=== PATIENT | female | born 1970 ===

== ENCOUNTER 2016-05-23 14:10 | Emergency (ER) | payer SELFPAY ==
[2016-05-23 14:23] VITALS: BMI 35.4
[2016-05-23 14:38] VITALS: TEMP 98.6
[2016-05-23] MEDS ORDERED: DiphenhydrAMINE 50 mg/ml Inj IVP STA (14:42)
--- NOTE | 2016-05-23 14:46 | ED PDOC ---
Arrival/HPI - General Chief Complaint: Dizziness/Lightheaded Time Seen by Provider: 05/23/16 14:17 Historian: Patient - History of Present Illness Narrative History of Present Illness (Text): 05/23/16 14:42 Alaina Stout is a 46 year old female who presents to the emergency department for evaluation of headache and dizziness since yesterday. Reports that headache resolved yesterday after taking Advil. However states that she developed a headache over the frontal region.Reports her blood pressure was elevated at 169/114 today morning. Denies fever, chills, vomiting, diarrhea, chest pain, shortness of breath, urinary symptoms or any other complaints at this time. 05/23/16 17:38 Time/Duration: Other (yesterday ) Symptom Onset: Gradual Symptom Course: Unchanged Severity Level: Mild Activities at Onset: Light Context: Home Past Medical History - Provider Review Nursing Documentation Reviewed: Yes - Travel History Have you recently traveled outside [place] w/in the past 3 mons?: Yes - Infectious Disease Hx of Infectious Diseases: None - Tetanus Immunization Tetanus Immunization: Unknown - Pulmonary Hx Asthma: Yes - Psychiatric Hx Psychophysiologic Disorder: No Hx Anxiety: No Hx Bipolar Disorder: No Hx Depression: No Hx Emotional Abuse: No Hx Hallucinations: No Hx Panic Disorder: No Hx Post Traumatic Stress Disorder: No Hx Psychosis: No Hx Physical Abuse: No Hx Schizophrenia: No Hx Sexual Abuse: No Hx Substance Use: No - Past Surgical History Past Surgical History: No Previous - Anesthesia Hx Anesthesia: No Hx Anesthesia Reactions: No Hx Malignant Hyperthermia: No - Suicidal Assessment Feels Threatened In Home Enviroment: No Family/Social History - Physician Review Nursing Documentation Reviewed: Yes Family/Social History: Unknown Family HX Smoking Status: Never Smoked Hx Alcohol Use: No Hx Substance Use: No Hx Substance Use Treatment: No Allergies/Home Meds Allergies/Adverse Reactions: Allergies aspirin Allergy (Verified 05/23/16 14:23) ANAPHYLAXIS Home Medications: Home Meds Medication Instructions Recorded Confirmed Albuterol Sulfate [Ventolin Hfa] 0.09 mg IH DAILY 07/04/14 07/04/14 Review of Systems - Physician Review All systems were reviewed & negative as marked: Yes - Review of Systems Constitutional: Normal. absent: Fatigue, Fevers Eyes: Vision Changes Respiratory: absent: SOB, Cough Cardiovascular: absent: Chest Pain Gastrointestinal: Nausea. absent: Abdominal Pain, Vomiting Genitourinary Female: Normal Neurological: Headache, Dizziness. absent: Focal Weakness, Gait Changes Psychiatric: Normal Physical Exam Vital Signs Reviewed: Yes Vital Signs Temp Pulse Resp BP Pulse Ox 05/23/16 16:26 69 18 155/79 H 97 05/23/16 15:34 76 18 158/83 H 97 05/23/16 15:10 98.6 F 85 18 159/110 H 97 05/23/16 14:10 98.6 F 85 16 159/110 H 100 Temperature: Afebrile Blood Pressure: Hypertensive Pulse: Regular Respiratory Rate: Normal Appearance: Positive for: Well-Appearing, Non-Toxic, Comfortable Pain Distress: None Mental Status: Positive for: Alert and Oriented X 3 - Systems Exam Head: Present: Atraumatic, Normocephalic Pupils: Present: PERRL Conjunctiva: Present: Normal Respiratory/Chest: Present: Clear to Auscultation, Good Air Exchange. No: Respiratory Distress, Accessory Muscle Use Cardiovascular: Present: Regular Rate and Rhythm, Normal S1, S2. No: Murmurs Abdomen: Present: Normal Bowel Sounds. No: Tenderness, Distention, Peritoneal Signs, Rebound, Guarding Neurological: Present: GCS=15, CN II-XII Intact, Speech Normal, Motor Func Grossly Intact, Normal Sensory Function Skin: Present: Warm, Dry, Normal Color. No: Rashes Psychiatric: Present: Alert, Oriented x 3, Normal Insight, Normal Concentration Medical Decision Making ED Course and Treatment: 05/23/16 14:52 Impression: A 46 year old female who presents to the ed complaining of headache and dizziness since yesterday. Also notes of elevated blood pressure of 169/114 Plan: -- EKG -- Labs, cardiac enzymes -- Benadryl -- HCG -- Urinalysis -- Reassess and disposition Progress Notes: 05/23/16 14:54 05/23/16 16:14 pt reassesed.states all symptoms resolved. no e/o of hypertensive emergency. suspected htn 2/2 pain/seals. pt states feels well to go home. no temporal ttp, no thunderclap features. labs unremarkable. advise outpt f/u and return precautions 05/23/16 16:27 ekg nsr [address] t wvae changes , poor tracing, no previous - Lab Interpretations Lab Results: 05/23/16 15:15 05/23/16 15:15 Lab Results 05/23/16 15:15: WBC 5.6, RBC 4.96, Hgb 12.0, Hct 34.4 L, MCV 69.4 L, MCH 24.2 L , MCHC 34.9, RDW 17.8 H, Plt Count 160, Gran % 60.4, Lymph % (Auto) 31.6, Crisp % (Auto) 6.6 H, Eos % (Auto) 1.2 L, Baso % (Auto) 0.2, Gran # 3.40, Lymph # 1.8 , Crisp # 0.4, Eos # 0.1, Baso # 0.01, PT 11.0, INR 1.02, APTT 27.1, Sodium 141, Potassium 4.0, Chloride 105, Carbon Dioxide 25, Anion Gap 15, BUN 11, Creatinine 0.5, Est GFR ( Amer) > 60, Est GFR (Non-Af Amer) > 60, Random Glucose 134 H, Calcium 8.9, Magnesium 2.0, Total Bilirubin 0.6, AST 24, ALT 20, Alkaline Phosphatase 75, Lactate Dehydrogenase 460, Total Creatine Kinase 38, Troponin I < 0.01, Total Protein 8.2, Albumin 4.1, Globulin 4.1, Albumin/ Globulin Ratio 1.0 L, Urine Color Straw, Urine Appearance Clear, Urine pH 7.5, Ur Specific [place] 1.010, Urine Protein Negative, Urine Glucose (UA) Negative, Urine Ketones Negative, Urine Blood Negative, Urine Nitrate Negative, Urine Bilirubin Negative, Urine Urobilinogen 0.2, Ur Leukocyte Esterase Negative, Urine HCG, Qual Negative - Medication Orders Current Medication Orders: Discontinued Medications Diphenhydramine HCl (Benadryl) 25 mg IVP STAT STA Stop: 05/23/16 14:43 Last Admin: 05/23/16 15:26 Dose: 25 MG IVP Administration Document 05/23/16 15:26 EQ (Rec: 05/23/16 15:26 EQ [facility] [id number] Charges for Administration # of IVP Administrations 1 Metoclopramide HCl (Reglan) 10 mg IVP STAT STA Stop: 05/23/16 14:43 Last Admin: 05/23/16 15:26 Dose: 10 MG IVP Administration Document 05/23/16 15:26 EQ (Rec: 05/23/16 15:26 EQ [facility] [id number] Charges for Administration # of IVP Administrations 1 - Scribe Statement The provider has reviewed the documentation as recorded by the Rodolfo Bartholomew Provider Attestation: All medical record entries made by the Miguelangelibkathya were at my direction and personally dictated by me. I have reviewed the chart and agree that the record accurately reflects my personal performance of the history, physical exam, medical decision making, and the department course for this patient. I have also personally directed, reviewed, and agree with the discharge instructions and disposition. Disposition/Present on Arrival - Present on Arrival Any Indicators Present on Arrival: No History of DVT/PE: No History of Uncontrolled Diabetes: No Urinary Catheter: No History of Decub. Ulcer: No History Surgical Site Infection Following: None - Disposition Have Diagnosis and Disposition been Completed?: Yes Diagnosis: Headache, Hypertension Disposition: HOME/ ROUTINE Disposition Time: 16:16 Condition: STABLE Discharge Instructions (ExitCare): Hypertension (ED), Acute Headache (ED) Print Language: SINHALA Prescriptions: Acetaminophen/Butalbital/Caf [Fioricet] 1 tab PO Q8 PRN #15 tab PRN Reason: Headache [facility] - Follow up with primary
[2016-05-23 15:11] VITALS: RESP 18; O2SAT 97
[2016-05-23 15:36] LABS: BASO # 0.01 K/mm3 (0.0-2.0); BASO % 0.2 % (0.0-3.0); EOS # 0.1 (0.0-0.7); EOS % 1.2 % (1.5-5.0); GRAN % 60.4 % (50.0-68.0); HEMATOCRIT 34.4 % (36.0-48.0); LYMPH # 1.8 (1.2-3.4); LYMPH % 31.6 % (22.0-35.0); MEAN CELL VOLUME 69.4 fL (80.0-105.0); MEAN CORPUSCULAR HEMOGLOBIN 24.2 pg (25.0-35.0); MEAN CORPUSCULAR HGB CONC 34.9 g/dl (31.0-37.0); MONO # 0.4 (0.1-0.6); MONO % 6.6 % (1.0-6.0); RED CELL DISTRIBUTION WIDTH 17.8 % (11.5-14.5); WHITE BLOOD COUNT 5.6 10^3/ul (4.5-11.0)
[2016-05-23 15:37] LABS: PH,URINE 7.5 (4.7-8.0); URINE BILIRUBIN NEGATIVE (NEGATIVE); URINE BLOOD NEGATIVE (NEGATIVE); URINE GLUCOSE (UA) NEGATIVE (NEGATIVE); URINE KETONE NEGATIVE (NEGATIVE); URINE LEUKOCYTE ESTERASE NEGATIVE Leu/uL (NEGATIVE); URINE PROTEIN NEGATIVE mg/dL (<30 mg/dL); URINE UROBILINOGEN 0.2 E.U./dL (<1 E.U./dL)
[2016-05-23 15:38] LABS: URINE APPEARANCE CLEAR (CLEAR); URINE COLOR STRAW (YELLOW)
[2016-05-23 15:42] LABS: ALKALINE PHOSPHATASE 75 U/L (38-133); ALT/SGPT 20 U/L (7-56); AST/SGOT 24 U/L (15-39); BILIRUBIN,TOTAL 0.6 mg/dL (0.2-1.3); BLOOD UREA NITROGEN 11 mg/dL (7-21); CALCIUM 8.9 mg/dL (8.4-10.5); CARBON DIOXIDE 25 mmol/L (21-33); CHLORIDE 105 mmol/L (98-107); GFR AFRICAN-AMERICAN > 60; GLUCOSE,RANDOM 134 mg/dL (70-110); SODIUM 141 mmol/L (132-148); TOTAL PROTEIN 8.2 g/dL (5.8-8.3)
[2016-05-23 15:52] LABS: INR 1.02 (0.93-1.08); PARTIAL THROMBOPLASTIN TIME 27.1 Seconds (23.7-30.8)
[2016-05-23 16:19] LABS: TROPONIN I < 0.01 ng/mL
[2016-05-23 16:27] VITALS: BP 155/79; PULSE 69
[2016-05-23 16:52] LABS: ADD MANUAL DIFF? NO
[2016-05-23 16:54] LABS: PLATELET COUNT 160 10^3/uL (120.0-450.0)
--- NOTE | 2016-05-24 12:00 | CARD ---
APPROVED REPORT EKG Measurement Heart [id number] <Conclusion> Normal sinus rhythm Minimal voltage criteria for LVH, may be normal variant Nonspecific T wave abnormality Abnormal ECG
== END 2016-05-23 16:50 | disposition home or self-care (01) ==
LOC: ED 14:10
DX: I10 Essential (primary) hypertension (principal); R51 Headache
CPT/HCPCS: 80053; 81003; 82550; 83615; 83735; 84484; 84703; 85025; 85610; 85730; 93005; 96374; 96375; 99285; J1200; J2765

== ENCOUNTER 2016-05-25 21:02 | Observation (INO) | payer SELFPAY ==
[2016-05-25] MEDS ORDERED: Nitroglycerin 2% Ointment Foilpak UD TOP STA (22:07)
--- NOTE | 2016-05-25 22:07 | ED PDOC ---
Arrival/HPI - General Chief Complaint: High Blood Pressure Time Seen by Provider: 05/25/16 21:45 Historian: Patient - History of Present Illness Narrative History of Present Illness (Text): 05/25/16 22:05 Alaina Stout is a 46 year old female, whose past medical history includes asthma, who presents to the Emergency department complaining of chest pain and high blood pressure. Patient states she was seen in the Emergency department on 05/23/2016 for high blood pressure and discharged home. Patient reports she is still experiencing high blood pressure and notes she developed right-sided chest pain yesterday with associated dyspnea on exertion. Patient states she was seen by a nurse practitioner today and advised to come to the Emergency department for further evaluation. Patient notes a family history of CAD, hypertension, and diabetes. Patient denies any fever, chills, nausea, vomiting, diarrhea, urinary symptoms, back pain, neck pain, headache, dizziness , or any other complaints. PMD: Dr. Faizan Marino Time/Duration: Other (few days) Symptom Onset: Gradual Symptom Course: Unchanged Activities at Onset: Rest, Light Context: Home Past Medical History - Provider Review Nursing Documentation Reviewed: Yes - Infectious Disease Hx of Infectious Diseases: None - Tetanus Immunization Tetanus Immunization: Unknown - Cardiac Hx Cardiac Disorders: Yes Hx Hypertension: Yes - Pulmonary Hx Asthma: Yes - Neurological Hx Headaches: Yes - HEENT Hx HEENT Disorder: No - Renal Hx Renal Disorder: No - Endocrine/Metabolic Hx Endocrine Disorders: Yes - Hematological/Oncological Hx Blood Disorders: No - Integumentary Hx Dermatological Disorder: No - Musculoskeletal/Rheumatological Hx Musculoskeletal Disorders: No - Gastrointestinal Hx Gastrointestinal Disorders: No - Genitourinary/Gynecological Hx Genitourinary Disorders: No - Psychiatric Hx Psychophysiologic Disorder: No Hx Anxiety: No Hx Bipolar Disorder: No Hx Depression: No Hx Emotional Abuse: No Hx Hallucinations: No Hx Panic Disorder: No Hx Post Traumatic Stress Disorder: No Hx Psychosis: No Hx Physical Abuse: No Hx Schizophrenia: No Hx Sexual Abuse: No Hx Substance Use: No - Past Surgical History Past Surgical History: No Previous - Anesthesia Hx Anesthesia: No Hx Anesthesia Reactions: No Hx Malignant Hyperthermia: No - Suicidal Assessment Feels Threatened In Home Enviroment: No Family/Social History - Physician Review Nursing Documentation Reviewed: Yes Family/Social History: No Known Family HX Smoking Status: Never Smoked Hx Alcohol Use: No Hx Substance Use: No Hx Substance Use Treatment: No Allergies/Home Meds Allergies/Adverse Reactions: Allergies aspirin Allergy (Verified 05/25/16 21:32) ANAPHYLAXIS Home Medications: Home Meds Medication Instructions Recorded Confirmed No Known Home Med 05/25/16 05/25/16 Review of Systems - Physician Review All systems were reviewed & negative as marked: Yes - Review of Systems Constitutional: Normal. absent: Fevers Eyes: Normal ENT: Normal Cardiovascular: Chest Pain, EUCEDA Gastrointestinal: Normal. absent: Abdominal Pain, Diarrhea, Nausea, Vomiting Genitourinary Female: Normal. absent: Dysuria, Frequency, Hematuria, Urine Output Changes Musculoskeletal: Normal. absent: Back Pain, Neck Pain Skin: Normal. absent: Rash Neurological: Normal. absent: Headache, Dizziness Endocrine: Normal Hemo/Lymphatic: Normal Psychiatric: Normal Physical Exam Vital Signs Reviewed: Yes Vital Signs Temp Pulse Resp BP Pulse Ox 05/26/16 01:07 92 H 18 150/80 98 05/25/16 22:46 86 16 133/88 05/25/16 22:02 78 20 143/96 H 100 05/25/16 21:33 99.0 F 83 16 148/106 H 98 Temperature: Afebrile Blood Pressure: Hypertensive Pulse: Regular Respiratory Rate: Normal Appearance: Positive for: Well-Appearing, Non-Toxic, Comfortable Pain Distress: None Mental Status: Positive for: Alert and Oriented X 3 - Systems Exam Head: Present: Atraumatic, Normocephalic Pupils: Present: PERRL Extroacular Muscles: Present: EOMI Conjunctiva: Present: Normal Mouth: Present: Moist Mucous Membranes Neck: Present: Normal Range of Motion Respiratory/Chest: Present: Clear to Auscultation, Good Air Exchange. No: Respiratory Distress, Accessory Muscle Use Cardiovascular: Present: Regular Rate and Rhythm, Normal S1, S2. No: Murmurs Abdomen: Present: Normal Bowel Sounds. No: Tenderness, Distention, Peritoneal Signs Back: Present: Normal Inspection Upper Extremity: Present: Normal Inspection. No: Cyanosis, Edema Lower Extremity: Present: Normal Inspection. No: Edema Neurological: Present: GCS=15, CN II-XII Intact, Speech Normal Skin: Present: Warm, Dry, Normal Color. No: Rashes Psychiatric: Present: Alert, Oriented x 3, Normal Insight, Normal Concentration Medical Decision Making ED Course and Treatment: 05/25/16 22:05 Impression: 46 year old female complaining of right-sided chest pain and high blood pressure. Differential Diagnosis include but are not limited to: ACS vs. chest pain vs. high blood pressure Plan: -- EKG -- Chest X-ray -- Labs, cardiac enzymes -- Nitroglycerin -- Reassess and disposition Prior Visits: Notes and results from previous visits were reviewed. On 05/23/2016, pt was seen in the Emergency department for high blood pressure and headache. Pt was d/c home. Progress Notes: Reviewed EKG, NSR at 89 bpm. Left atrial enlargement. LVH. Non-specific ST/T wave changes. 05/26/16 01:37 Reviewed labs, no acute abnormalities. Reviewed radiology, Chest X-ray shows no active disease. 05/26/16 01:46 Case discussed with medical billing clerk, who is aware and agrees with plan. House physician notified. 05/26/16 01:[address] Georges, who is aware and agrees with plan. Accepts pt in to hospitalist service. Pt will go to Telemetry observation for chest pain. Pt is no acute distress. Discussed results and hospital observation plan with pt , who is aware and verbalizes understanding. - Lab Interpretations Lab Results: 05/25/16 22:46 05/25/16 22:38 Lab Results 05/25/16 22:46: WBC 6.8 D, RBC 4.87, Hgb 11.5 L, Hct 33.8 L, MCV 69.4 L, MCH 23.6 L, MCHC 34.0, RDW 17.6 H, Plt Count 369, MPV 10.0 05/25/16 22:38: PT 11.3, INR 1.05, APTT 26.6, Sodium 140, Potassium 4.0, Chloride 106, Carbon Dioxide 20 L, Anion Gap 18, BUN 9, Creatinine 0.4 L, Est GFR ( Amer) > 60, Est GFR (Non-Af Amer) > 60, Random Glucose 109, Calcium 8.7, Total Bilirubin 0.4, AST 21, ALT 31, Alkaline Phosphatase 83, Lactate Dehydrogenase 452, Total Creatine Kinase 49, Troponin I < 0.01, Total Protein 8.1, Albumin 4.0, Globulin 4.1, Albumin/Globulin Ratio 1.0 L I have reviewed the lab results: Yes - RAD Interpretation Radiology Orders: 05/25/16 22:06 CHEST PORTABLE [RAD] Stat Herbicide Service Sales Representative: ED Physician - EKG Interpretation Interpreted by ED Physician: Yes Type: 12 lead EKG - Medication Orders Current Medication Orders: Discontinued Medications Nitroglycerin (Nitro-Bid 2% Oint) 1 ea TOP ONCE STA Stop: 05/25/16 22:08 Last Admin: 05/25/16 22:50 Dose: 1 EA - Scribe Statement The provider has reviewed the documentation as recorded by the Rodolfo Davis Provider Attestation: All medical record entries made by the Rodolfo were at my direction and personally dictated by me. I have reviewed the chart and agree that the record accurately reflects my personal performance of the history, physical exam, medical decision making, and the department course for this patient. I have also personally directed, reviewed, and agree with the discharge instructions and disposition. Disposition/Present on Arrival - Present on Arrival Any Indicators Present on Arrival: No History of DVT/PE: No History of Uncontrolled Diabetes: No Urinary Catheter: No History of Decub. Ulcer: No History Surgical Site Infection Following: None - Disposition Have Diagnosis and Disposition been Completed?: Yes Diagnosis: Chest pain Disposition: HOSPITALIZED Disposition Time: 01:53 Patient Plan: Observation Patient Problems: Current Active Problems Problem Status Diagnosed Chest pain Acute Condition: STABLE Discharge Instructions (ExitCare): Chest Pain (ED) Referrals: Arash Marino MD [Primary Care Provider] - Follow up with primary
[2016-05-25 22:52] LABS: HEMATOCRIT 33.8 % (36.0-48.0); MEAN CELL VOLUME 69.4 fL (80.0-105.0); MEAN CORPUSCULAR HEMOGLOBIN 23.6 pg (25.0-35.0); RED CELL DISTRIBUTION WIDTH 17.6 % (11.5-14.5); WHITE BLOOD COUNT 6.8 10^3/ul (4.5-11.0)
[2016-05-25 23:00] LABS: ALKALINE PHOSPHATASE 83 U/L (38-133); ALT/SGPT 31 U/L (7-56); AST/SGOT 21 U/L (15-39); BILIRUBIN,TOTAL 0.4 mg/dL (0.2-1.3); BLOOD UREA NITROGEN 9 mg/dL (7-21); CALCIUM 8.7 mg/dL (8.4-10.5); CARBON DIOXIDE 20 mmol/L (21-33); CHLORIDE 106 mmol/L (98-107); GFR AFRICAN-AMERICAN > 60; GLUCOSE,RANDOM 109 mg/dL (70-110); SODIUM 140 mmol/L (132-148); TOTAL PROTEIN 8.1 g/dL (5.8-8.3)
[2016-05-25 23:05] LABS: INR 1.05 (0.93-1.08); PARTIAL THROMBOPLASTIN TIME 26.6 Seconds (23.7-30.8)
[2016-05-25 23:10] LABS: TROPONIN I < 0.01 ng/mL
--- NOTE | 2016-05-26 02:47 | CP.PCM.HP ---
<Odilon Thomas - Last Filed: 05/26/16 02:59> History of Present Illness - History of Present Illness History of Present Illness: cc: Chest pain HPI: Patient is a 46yo female with past medical history of asthma, nephrolithiasis and hx of gestational diabetes that presented c/o right-sided chest pain for the last couple days. Patient stated that she checked her blood pressure at home and it was ~160/~110. She describes her right-sided chest pain as pressure-like in nature, constant and radiating into her right axilla. She also reported headaches, shortness of breath on exertion, eye floaters and inability to tolerate greasy foods which cause her to have nausea and vomiting. She states that she had been taking advil for her headaches with moderate relief. Patient denied fever, chills, cough, abdominal pain, focal weakness, numbness, tingling, dysuria, frequency, urgency. 12 point ROS as per HPI above, otherwise negative PMHx: Asthma, nephrolithiasis, gestational diabetes PSHx: none Medications: Advil for headaches as needed Allergies: aspirin Family Hx: Mother: HTN, HLD, DM2 ; Father: DM2 Social Hx: Former smoker quit 9yrs ago (smoked 2-3 cig/day for ~4yrs); denies illicit drugs and alcohol use Present on Admission - Present on Admission Any Indicators Present on Admission: No Past Patient History - Infectious Disease Hx of Infectious Diseases: None - Tetanus Immunizations Tetanus Immunization: Unknown - Past Social History Smoking Status: Never Smoked - CARDIAC Hx Cardiac Disorders: Yes Hx Hypertension: Yes - PULMONARY Hx Asthma: Yes - HEENT Hx HEENT Problems: No - RENAL Hx Chronic Kidney Disease: No - ENDOCRINE/METABOLIC Hx Endocrine Disorders: Yes - HEMATOLOGICAL/ONCOLOGICAL Hx Blood Disorders: No - INTEGUMENTARY Hx Dermatological Problems: No - MUSCULOSKELETAL/RHEUMATOLOGICAL Hx Musculoskeletal Disorders: No - GASTROINTESTINAL Hx Gastrointestinal Disorders: No - GENITOURINARY/GYNECOLOGICAL Hx Genitourinary Disorders: No - PSYCHIATRIC Hx Psychophysiologic Disorder: No Hx Anxiety: No Hx Bipolar Disorder: No Hx Depression: No Hx Emotional Abuse: No Hx Hallucinations: No Hx Panic Symptoms: No Hx Post Traumatic Stress Disorder: No Hx Psychosis: No Hx Physical Abuse: No Hx Schizophrenia: No Hx Sexual Abuse: No Hx Substance Use: No - SURGICAL HISTORY Hx Surgeries: No - ANESTHESIA Hx Anesthesia: No Hx Anesthesia Reactions: No Hx Malignant Hyperthermia: No Meds Allergies/Adverse Reactions: Allergies Allergy/AdvReac Type Severity Reaction Status Date / Time aspirin Allergy ANAPHYLAXIS Verified 05/25/16 21:32 Physical Exam - Constitutional Appears: Well, Non-toxic, No Acute Distress - Head Exam Head Exam: ATRAUMATIC, NORMAL INSPECTION, NORMOCEPHALIC - Eye Exam Eye Exam: EOMI, PERRL - ENT Exam ENT Exam: Mucous Membranes Moist - Neck Exam Neck exam: Positive for: Normal Inspection. Negative for: Lymphadenopathy, Thyromegaly - Respiratory Exam Respiratory Exam: Clear to Auscultation Bilateral, NORMAL BREATHING PATTERN. absent: Accessory Muscle Use, Prolonged Expiratory Phase, Rales, Rhonchi, Wheezes - Cardiovascular Exam Cardiovascular Exam: RRR, +S1, +S2. absent: Tachycardia, Diastolic murmur, Gallop, JVD, Rubs, Systolic Murmur - GI/Abdominal Exam GI & Abdominal Exam: Normal Bowel Sounds, Soft. absent: Distended, Firm, Guarding, Rebound, Rigid, Tenderness - Extremities Exam Extremities exam: Positive for: normal inspection. Negative for: pedal edema, tenderness - Neurological Exam Neurological exam: Alert, CN II-XII Intact, Oriented x3 - Psychiatric Exam Psychiatric exam: Normal Affect, Normal Mood - Skin Skin Exam: Dry, Intact, Normal Color, Warm Results - Vital Signs Recent Vital Signs: Last Vital Signs Temp 99.0 F 05/25/16 21:33 Pulse 95 H 05/26/16 02:04 Resp 18 05/26/16 02:04 BP 130/83 05/26/16 02:04 Pulse Ox 98 05/26/16 02:04 - Labs Result Diagrams: 05/25/16 22:46 05/25/16 22:38 Labs: Laboratory Results - last 24 hr 05/25/16 05/25/16 22:38 22:46 WBC 6.8 D RBC 4.87 Hgb 11.5 L Hct 33.8 L MCV 69.4 L MCH 23.6 L MCHC 34.0 RDW 17.6 H Plt Count 369 MPV 10.0 PT 11.3 INR 1.05 APTT 26.6 Sodium 140 Potassium 4.0 Chloride 106 Carbon Dioxide 20 L Anion Gap 18 BUN 9 Creatinine 0.4 L Est GFR ( Amer) > 60 Est GFR (Non-Af Amer) > 60 Random Glucose 109 Calcium 8.7 Total Bilirubin 0.4 AST 21 ALT 31 Alkaline Phosphatase 83 Lactate Dehydrogenase 452 Total Creatine Kinase 49 Troponin I < 0.01 Total Protein 8.1 Albumin 4.0 Globulin 4.1 Albumin/Globulin Ratio 1.0 L Assessment & Plan - Assessment and Plan (Free Text) Assessment: 46yo female with history of asthma, nephrolithiasis and gestational diabetes presents c/o chest pain associated with shortness of breath, headaches and eyes floaters for past couple days. Plan: 1. Chest pain r/o ACS -EKG reviewed; normal sinus rhythm at 89bpm with non-specific ST-T wave changes -CXR revealed no active disease -Troponin negative x1, will trend -Lipid panel, TSH and A1C pending -UA and drug screen pending -Abdominal US pending -Cardiology consulted - Dr. Srinivasan 2. GI/DVT Prophylaxis -Protonix/Lovenox Patient seen and case discussed with attending, Dr. Georges - Date & Time Date: 05/26/16 Time: 02:48 <Lupe Georges - Last Filed: 05/26/16 19:38> Results - Vital Signs Recent Vital Signs: Last Vital Signs Temp 97.4 F L 05/26/16 12:00 Pulse 86 05/26/16 12:48 Resp 20 05/26/16 12:00 BP 141/86 05/26/16 12:48 Pulse Ox 96 05/26/16 05:38 - Labs Result Diagrams: 05/26/16 08:46 05/26/16 07:30 Labs: Laboratory Results - last 24 hr 05/26/16 05/26/16 05/26/16 03:00 07:30 07:35 WBC RBC Hgb Hct MCV MCH MCHC RDW Plt Count Sodium 138 Potassium 3.9 Chloride 106 Carbon Dioxide 24 Anion Gap 12 BUN 9 Creatinine 0.5 Est GFR ( Amer) > 60 Est GFR (Non-Af Amer) > 60 Random Glucose 107 Hemoglobin A1c Calcium 8.7 Total Bilirubin 0.6 AST 21 ALT 29 Alkaline Phosphatase 75 Lactate Dehydrogenase 330 L Total Creatine Kinase 39 Troponin I < 0.01 Total Protein 7.7 Albumin 4.0 Globulin 3.7 Albumin/Globulin Ratio 1.1 Triglycerides 103 Cholesterol 196 LDL Cholesterol Direct 116 HDL Cholesterol 35 TSH 3rd Generation 5.72 H Urine Color Straw Urine Appearance Slight-cloudy Urine pH 6.0 Ur Specific [place] <= 1.005 Urine Protein Negative Urine Glucose (UA) Negative Urine Ketones Negative Urine Blood Large H Urine Nitrate Negative Urine Bilirubin Negative Urine Urobilinogen 0.2 Ur Leukocyte Esterase Negative Urine RBC 1 - 3 Urine WBC 0 - 2 Ur Epithelial Cells 0 - 2 Urine Opiates Screen Negative Urine Methadone Screen Negative Ur Barbiturates Screen Negative Ur Phencyclidine Scrn Negative Ur Amphetamines Screen Negative U Benzodiazepines Scrn Negative U Oth Cocaine Metabols Negative U Cannabinoids Screen Negative 05/26/16 05/26/16 07:40 08:46 WBC 5.6 RBC 4.55 Hgb 10.8 L Hct 31.4 L MCV 69.0 L MCH 23.7 L MCHC 34.4 RDW 17.7 H Plt Count 102 L Sodium Potassium Chloride Carbon Dioxide Anion Gap BUN Creatinine Est GFR ( Amer) Est GFR (Non-Af Amer) Random Glucose Hemoglobin A1c 6.0 Calcium Total Bilirubin AST ALT Alkaline Phosphatase Lactate Dehydrogenase Total Creatine Kinase Troponin I Total Protein Albumin Globulin Albumin/Globulin Ratio Triglycerides Cholesterol LDL Cholesterol Direct HDL Cholesterol TSH 3rd Generation Urine Color Urine Appearance Urine pH Ur Specific [place] Urine Protein Urine Glucose (UA) Urine Ketones Urine Blood Urine Nitrate Urine Bilirubin Urine Urobilinogen Ur Leukocyte Esterase Urine RBC Urine WBC Ur Epithelial Cells Urine Opiates Screen Urine Methadone Screen Ur Barbiturates Screen Ur Phencyclidine Scrn Ur Amphetamines Screen U Benzodiazepines Scrn U Oth Cocaine Metabols U Cannabinoids Screen Attending/Attestation - Attestation I have personally seen and examined this patient.: Yes I have fully participated in the care of the patient.: Yes I have reviewed all pertinent clinical information: Yes Notes (Text): 05/26/16 19:36 This patient was seen when she was in the ER in bed # 7 with resident. Agree with history , physical examination, assessment and plan.
[2016-05-26 03:14] LABS: URINE BILIRUBIN NEGATIVE (NEGATIVE); URINE BLOOD LARGE (NEGATIVE); URINE GLUCOSE (UA) NEGATIVE (NEGATIVE); URINE KETONE NEGATIVE (NEGATIVE); URINE LEUKOCYTE ESTERASE NEGATIVE Leu/uL (NEGATIVE); URINE PROTEIN NEGATIVE mg/dL (<30 mg/dL); URINE UROBILINOGEN 0.2 E.U./dL (<1 E.U./dL)
[2016-05-26 03:16] LABS: URINE APPEARANCE SLIGHT-CLOUDY (CLEAR); URINE COLOR STRAW (YELLOW)
[2016-05-26 03:26] LABS: URINE EPITHELIAL CELLS 0 - 2 /hpf (0-5); URINE WBC 0 - 2 /hpf (0-6)
[2016-05-26 04:12] VITALS: O2SAT 96
[2016-05-26 04:45] VITALS: BMI 34.4
--- NOTE | 2016-05-26 07:29 | RAD ---
HISTORY: chest pain COMPARISON: No prior. FINDINGS: LUNGS: No active pulmonary disease. PLEURA: No significant pleural effusion identified, no pneumothorax apparent. CARDIOVASCULAR: Normal. OSSEOUS STRUCTURES: No significant abnormalities. VISUALIZED UPPER ABDOMEN: Normal. OTHER FINDINGS: None. IMPRESSION: No active disease.
[2016-05-26 08:01] LABS: CHOLESTEROL 196 mg/dL (130-200)
[2016-05-26 08:18] LABS: TROPONIN I < 0.01 ng/mL
[2016-05-26 08:51] LABS: HEMATOCRIT 31.4 % (36.0-48.0); MEAN CORPUSCULAR HEMOGLOBIN 23.7 pg (25.0-35.0); MEAN CORPUSCULAR HGB CONC 34.4 g/dl (31.0-37.0); PLATELET COUNT 102 10^3/uL (120.0-450.0); RED CELL DISTRIBUTION WIDTH 17.7 % (11.5-14.5); WHITE BLOOD COUNT 5.6 10^3/ul (4.5-11.0)
[2016-05-26 08:54] LABS: ALB/GLOB RATIO 1.1 (1.1-1.8); ALKALINE PHOSPHATASE 75 U/L (38-133); ALT/SGPT 29 U/L (7-56); AST/SGOT 21 U/L (15-39); BILIRUBIN,TOTAL 0.6 mg/dL (0.2-1.3); BLOOD UREA NITROGEN 9 mg/dL (7-21); CALCIUM 8.7 mg/dL (8.4-10.5); CARBON DIOXIDE 24 mmol/L (21-33); CHLORIDE 106 mmol/L (98-107); GFR AFRICAN-AMERICAN > 60; GLUCOSE,RANDOM 107 mg/dL (70-110); POTASSIUM 3.9 mmol/L (3.6-5.0); SODIUM 138 mmol/L (132-148); TOTAL PROTEIN 7.7 g/dL (5.8-8.3)
--- NOTE | 2016-05-26 09:55 | CON ---
DATE: 05/26/2016 REASON FOR CONSULTATION: Chest pain, right sided, underneath the breast. BRIEF CLINICAL HISTORY: A 46-year-old obese female with past medical history of asthma, history of n ephrolithiasis, history of prediabetic, admitted with right-sided chest pain under the right breast. Denies any chest pain on exertion, but complained of shortness of breath on exertion. PAST MEDICAL HISTORY: Significant for asthma, gestational diabetes and nephrolithiasis. SOCIAL HISTORY: Denies smoking. Denies any history of alcohol abuse. FAMILY HISTORY: Significant for father and mother have diabetes and coronary artery disease in [place]. ALLERGIES: ASPIRIN,GETS HIVES. CURRENT MEDICATIONS: Denies any medication taking at home. REVIEW OF SYSTEMS: Negative except as per HPI. PHYSICAL EXAMINATION: VITAL SIGNS: Temperature afebrile, heart rate 82, blood pressure 138/70. HEENT: PERRLA. Extraocular muscles intact. NECK: Supple. No carotid bruits. No thyromegaly. CHEST: Clear to auscultation. HEART: S1, S2 regular. ABDOMEN: Soft. EXTREMITIES: Clubbing and cyanosis negative. BLOOD WORKUP: As follows: WBC 5.3, hemoglobin 10.8, hematocrit 31.4, platelet count 102. Chemistry shows sodium 130, potassium 3.9, chloride 106, carbon dioxide 24, anion gap of 12, BUN 9, creatinine 0.5. Troponin 0.01 x 2 negative. [id number], cholesterol 196, LDL 116, HDL 35. TSH 5.72. IMPRESSION: Hypothyroidism, morbid obesity, body mass index 34.5 kg/m2, and history of gestational d iabetes, history of nephrolithiasis, history of asthma, right-sided chest pain. RECOMMENDATION: Though pain is atypical, but given the multiple risk factors for coronary artery dis ease, suggest a stress test as outpatient. We will discontinue telemetry. Further recommendation de pending on the hospital course. We will follow with you. We will put low dose of Synthroid because of mildly elevated TSH. Dana Knight MD cc: [phone] TT: 05/26/2016 09:54:59 Confirmation # [id number] Dictation # [id number] tn
[2016-05-26] MEDS ORDERED: Enoxaparin 40 mg Syringe SC SCH (10:00)
[2016-05-26] MEDS ORDERED: Enoxaparin 30 mg Syringe SC SCH (10:00)
--- NOTE | 2016-05-26 10:39 | US ---
HISTORY: r/o cholelithiasis COMPARISON: None. TECHNIQUE: Sonographic evaluation of the abdomen. FINDINGS: LIVER: Measures 15.3 cm. Normal size. Normal echogenicity of the liver parenchyma. No mass. No intrahepatic bile duct dilatation. GALLBLADDER: Unremarkable. No gallstones. COMMON BILE DUCT: Measures 4.4 mm. No stones. No dilatation. PANCREAS: Unremarkable as visualized. No mass. No ductal dilatation. RIGHT KIDNEY: Measures 11.6 by 4.7 x 6.1cm. Normal echogenicity. No calculus, mass, or hydronephrosis. LEFT KIDNEY: Measures 11.0 x 4.7 x 6.6cm. Normal echogenicity. No calculus, mass, or hydronephrosis. SPLEEN: Normal in size and contour. No mass. AORTA: No aneurysmal dilatation. IVC: Not visualized-prominent bowel gas OTHER FINDINGS: None. IMPRESSION: Unremarkable abdominal sonogram.
--- NOTE | 2016-05-26 11:12 | CT ---
PROCEDURE: CT HEAD WITHOUT CONTRAST. HISTORY: headache COMPARISON: None available. TECHNIQUE: Axial computed tomography images were obtained through the head/brain without intravenous contrast. Radiation dose: Total exam DLP = 744.87 mGy-cm. This CT exam was performed using one or more of the following dose reduction techniques: Automated exposure control, adjustment of the mA and/or kV according to patient size, and/or use of iterative reconstruction technique. FINDINGS: HEMORRHAGE: No acute parenchymal , subarachnoid nor extra-axial hemorrhage. . BRAIN: No mass effect or edema. No atrophy or chronic microvascular ischemic changes. Suspect partially empty sella. VENTRICLES: Unremarkable. No hydrocephalus. CALVARIUM: Unremarkable. PARANASAL SINUSES: The frontal sinuses are underpneumatized/hypoplastic. Remaining visualized paranasal sinuses are otherwise relatively well-developed. No fluid levels seen to suggest acute sinusitis. MASTOID AIR CELLS: Unremarkable as visualized. No inflammatory changes. OTHER FINDINGS: There appears to be mild exophthalmos. Clinical correlation with ophthalmologic examination suggested. IMPRESSION: No acute intracranial hemorrhage.
[2016-05-26 12:46] VITALS: BP 141/86; PULSE 86; RESP 20; TEMP 97.4
--- NOTE | 2016-05-26 12:58 | CP.PCM.DIS ---
<Suzette Avalos - Last Filed: 05/26/16 14:11> Provider - Provider Date of Admission: 05/26/16 01:50 Attending physician: Rita Khoury MD Primary care physician: Arash Givens MD Consults: Dana Knight MD Time Spent in preparation of Discharge (in minutes): 45 Diagnosis - Discharge Diagnosis (1) Chest pain Status: Acute Priority: High (2) Headache Status: Acute (3) Hypertension Status: Acute (4) Hypothyroid Status: Acute (5) Postprandial nausea Status: Acute (6) Postprandial vomiting Status: Acute Hospital Course - Lab Results Lab Results: Most Recent Lab Values WBC 5.6 10^3/ul (4.5-11.0) 05/26/16 08:46 RBC 4.55 10^6/uL (3.5-6.1) 05/26/16 08:46 Hgb 10.8 gm/dL (12.0-16.0) L 05/26/16 08:46 Hct 31.4 % (36.0-48.0) L 05/26/16 08:46 MCV 69.0 fL (80.0-105.0) L 05/26/16 08:46 MCH 23.7 pg (25.0-35.0) L 05/26/16 08:46 MCHC 34.4 g/dl (31.0-37.0) 05/26/16 08:46 RDW 17.7 % (11.5-14.5) H 05/26/16 08:46 Plt Count 102 10^3/uL (120.0-450.0) L 05/26/16 08:46 MPV 10.0 fl (7.0-11.0) 05/25/16 22:46 PT 11.3 Seconds (9.9-11.8) 05/25/16 22:38 INR 1.05 (0.93-1.08) 05/25/16 22:38 APTT 26.6 Seconds (23.7-30.8) 05/25/16 22:38 Sodium 138 mmol/L (132-148) 05/26/16 07:30 Potassium 3.9 mmol/L (3.6-5.0) 05/26/16 07:30 Chloride 106 mmol/L (98-107) 05/26/16 07:30 Carbon Dioxide 24 mmol/L (21-33) 05/26/16 07:30 Anion Gap 12 (10-20) 05/26/16 07:30 BUN 9 mg/dL (7-21) 05/26/16 07:30 Creatinine 0.5 mg/dL (0.5-1.4) 05/26/16 07:30 Est GFR ( Amer) > 60 05/26/16 07:30 Est GFR (Non-Af Amer) > 60 05/26/16 07:30 Random Glucose 107 mg/dL (70-110) 05/26/16 07:30 Hemoglobin A1c 6.0 % (4.2-6.5) 05/26/16 07:40 Calcium 8.7 mg/dL (8.4-10.5) 05/26/16 07:30 Total Bilirubin 0.6 mg/dL (0.2-1.3) 05/26/16 07:30 AST 21 U/L (15-39) 05/26/16 07:30 ALT 29 U/L (7-56) 05/26/16 07:30 Alkaline Phosphatase 75 U/L (38-133) 05/26/16 07:30 Lactate Dehydrogenase 330 U/L (333-699) L 05/26/16 07:35 Total Creatine Kinase 39 U/L (35-230) 05/26/16 07:35 Troponin I < 0.01 ng/mL 05/26/16 07:35 Total Protein 7.7 g/dL (5.8-8.3) 05/26/16 07:30 Albumin 4.0 g/dL (3.0-4.8) 05/26/16 07:30 Globulin 3.7 gm/dL 05/26/16 07:30 Albumin/Globulin Ratio 1.1 (1.1-1.8) 05/26/16 07:30 Triglycerides 103 mg/dL (35-160) 05/26/16 07:35 Cholesterol 196 mg/dL (130-200) 05/26/16 07:35 LDL Cholesterol Direct 116 mg/dL (0-129) 05/26/16 07:35 HDL Cholesterol 35 mg/dL (29-60) 05/26/16 07:35 TSH 3rd Generation 5.72 mIU/mL (0.46-4.68) H 05/26/16 07:35 Urine Color Straw (YELLOW) 05/26/16 03:00 Urine Appearance Slight-cloudy (CLEAR) 05/26/16 03:00 Urine pH 6.0 (4.7-8.0) 05/26/16 03:00 Ur Specific [place] <= 1.005 (1.005-1.035) 05/26/16 03:00 Urine Protein Negative mg/dL (<30 mg/dL) 05/26/16 03:00 Urine Glucose (UA) Negative mg/dL (NEGATIVE) 05/26/16 03:00 Urine Ketones Negative mg/dL (NEGATIVE) 05/26/16 03:00 Urine Blood Large (NEGATIVE) H 05/26/16 03:00 Urine Nitrate Negative (NEGATIVE) 05/26/16 03:00 Urine Bilirubin Negative (NEGATIVE) 05/26/16 03:00 Urine Urobilinogen 0.2 E.U./dL (<1 E.U./dL) 05/26/16 03:00 Ur Leukocyte Esterase Negative Marilou/uL (NEGATIVE) 05/26/16 03:00 Urine RBC 1 - 3 /hpf (0-2) 05/26/16 03:00 Urine WBC 0 - 2 /hpf (0-6) 05/26/16 03:00 Ur Epithelial Cells 0 - 2 /hpf (0-5) 05/26/16 03:00 Urine Opiates Screen Negative (NEGATIVE) 05/26/16 03:00 Urine Methadone Screen Negative (NEGATIVE) 05/26/16 03:00 Ur Barbiturates Screen Negative (NEGATIVE) 05/26/16 03:00 Ur Phencyclidine Scrn Negative (NEGATIVE) 05/26/16 03:00 Ur Amphetamines Screen Negative (NEGATIVE) 05/26/16 03:00 U Benzodiazepines Scrn Negative (NEGATIVE) 05/26/16 03:00 U Oth Cocaine Metabols Negative (NEGATIVE) 05/26/16 03:00 U Cannabinoids Screen Negative (NEGATIVE) 05/26/16 03:00 - Hospital Course Hospital Course: Pt is a 46 y/o F with PMH of asthma, nephrolithiasis, obesity, and gestational diabetes who presented right sided chest pain worse with deep inspiration for 2 days. When the pain started patient checked her blood pressure which was elevated at approximately 160/110. Patient went to the ED that day, they gave per pain medication and her blood pressure resolved and they sent her home. Pain persisted, so she returned to the ED yesterday. Patient also complained of chronic headache, weight gain of 40 pounds over past 6 months, and nausea and vomiting after eating greasy foods. Patient was hypertensive at presentation with BP of 148/106 which decreased with nitro-bid and pain medication.. EKG showed NSR with non-specific t-wave abnormality, CXR showed no acute disease, patient was admitted to telemetry and cardiology was consulted. Cardiac enzymes were wnl x2. Head CT was negative for any acute disease. Abdominal US was negative for any acute disease. TSH was elevated. Cardiology recommended outpatient stress test given numerous comorbidities and a low dose of synthroid for possible hypothyroidism. Patient's blood pressure remained normal or mild hypertensive over 12 hours, right chest pain persisted unchanged, but headache, nausea, and vomiting resolved and patient was able to tolerate her low cholesterol, low salt diet. Plans were made for discharge with new prescriptions of low dose synthroid and metoprolol with instructions to get a repeat TSH, T3 and T4 level in 3-6 weeks, and follow up with her PMD and a door tender for an outpatient stress test on . Diagnoses, test results, and plan was discussed with patient and patient 's family. They expressed understanding, agreement, and intentions to comply with discharge instructions. For full hospital course refer to the chart Discharge Exam - Head Exam Head Exam: ATRAUMATIC, NORMOCEPHALIC - Eye Exam Eye Exam: EOMI, Normal appearance, PERRL. absent: Scleral icterus Pupil Exam: NORMAL ACCOMODATION, PERRL - ENT Exam ENT Exam: Mucous Membranes Moist, Normal Oropharynx. absent: Mucous Membranes Dry - Neck Exam Neck exam: Normal Inspection - Respiratory Exam Respiratory Exam: Clear to PA & Lateral, NORMAL BREATHING PATTERN. absent: Accessory Muscle Use - Cardiovascular Exam Cardiovascular Exam: RRR, +S1, +S2. absent: Diastolic murmur, Systolic Murmur - GI/Abdominal Exam GI & Abdominal Exam: Soft, Tenderness (mild TTP RUQ>LUQ). absent: Distended Additional comments: negative barry's - Extremities Exam Extremities exam: pedal pulses present Additional comments: no pedal edema, no calf swelling or pain - Back Exam Back exam: NORMAL INSPECTION - Neurological Exam Neurological exam: Alert, CN II-XII Intact, Oriented x3 - Psychiatric Exam Psychiatric exam: Normal Affect, Normal Mood - Skin Skin Exam: Dry, Intact, Normal Color, Warm Discharge Plan - Discharge Medications Prescriptions: amLODIPine [Norvasc] 5 mg PO DAILY #30 tab Levothyroxine [Synthroid] 25 mcg PO ACB #30 tab - Follow Up Plan Condition: STABLE Disposition: HOME/ ROUTINE Patient education suggested?: Yes Instructions: Chest Pain (GEN), Biliary Colic (GEN), Heart Healthy Diet (DC), Hypothyroidism (DC), Low Sodium Diet (DC) Additional Instructions: 1. Follow up with PMD DR. Shah on tuesday. 2.Follow up with cardiology for an outpatient stress test with DR. Knight on . 3.Repeat TSH with a T4/T3 level 3-6 weeks after discharge and follow up results with your PCP 4. Low fat, low cholesterol/ heart healthy diet. 5. iron rich diet. 6. Diet and exercise and weight reduction. 1. Seguimiento con PMD DR. Shah [facility]. 2. Seguir con la cardiologa para be prueba de estrs ambulatorio con DR. Knight el 06/03/16. 3.Repita la TSH con un nivel de T4 / T3 3-6 semanas despus de la descarga y los resultados de seguimiento con [facility] PCP 4. Dieta baja en grasas, baja en colesterol / corazn saludable. 5. dieta antonietta en seema. 6. Dieta y ejercicio y reduccin de peso. Referrals: Arash Givens MD [Primary Care Provider] - <Rita Khoury - Last Filed: 05/26/16 16:30> Provider - Provider Date of Admission: 05/26/16 01:50 Attending physician: Rita Khoury MD Primary care physician: Arash Givens MD Time Spent in preparation of Discharge (in minutes): 35 Hospital Course - Lab Results Lab Results: Most Recent Lab Values WBC 5.6 10^3/ul (4.5-11.0) 05/26/16 08:46 RBC 4.55 10^6/uL (3.5-6.1) 05/26/16 08:46 Hgb 10.8 gm/dL (12.0-16.0) L 05/26/16 08:46 Hct 31.4 % (36.0-48.0) L 05/26/16 08:46 MCV 69.0 fL (80.0-105.0) L 05/26/16 08:46 MCH 23.7 pg (25.0-35.0) L 05/26/16 08:46 MCHC 34.4 g/dl (31.0-37.0) 05/26/16 08:46 RDW 17.7 % (11.5-14.5) H 05/26/16 08:46 Plt Count 102 10^3/uL (120.0-450.0) L 05/26/16 08:46 MPV 10.0 fl (7.0-11.0) 05/25/16 22:46 PT 11.3 Seconds (9.9-11.8) 05/25/16 22:38 INR 1.05 (0.93-1.08) 05/25/16 22:38 APTT 26.6 Seconds (23.7-30.8) 05/25/16 22:38 Sodium 138 mmol/L (132-148) 05/26/16 07:30 Potassium 3.9 mmol/L (3.6-5.0) 05/26/16 07:30 Chloride 106 mmol/L (98-107) 05/26/16 07:30 Carbon Dioxide 24 mmol/L (21-33) 05/26/16 07:30 Anion Gap 12 (10-20) 05/26/16 07:30 BUN 9 mg/dL (7-21) 05/26/16 07:30 Creatinine 0.5 mg/dL (0.5-1.4) 05/26/16 07:30 Est GFR ( Amer) > 60 05/26/16 07:30 Est GFR (Non-Af Amer) > 60 05/26/16 07:30 Random Glucose 107 mg/dL (70-110) 05/26/16 07:30 Hemoglobin A1c 6.0 % (4.2-6.5) 05/26/16 07:40 Calcium 8.7 mg/dL (8.4-10.5) 05/26/16 07:30 Total Bilirubin 0.6 mg/dL (0.2-1.3) 05/26/16 07:30 AST 21 U/L (15-39) 05/26/16 07:30 ALT 29 U/L (7-56) 05/26/16 07:30 Alkaline Phosphatase 75 U/L (38-133) 05/26/16 07:30 Lactate Dehydrogenase 330 U/L (333-699) L 05/26/16 07:35 Total Creatine Kinase 39 U/L (35-230) 05/26/16 07:35 Troponin I < 0.01 ng/mL 05/26/16 07:35 Total Protein 7.7 g/dL (5.8-8.3) 05/26/16 07:30 Albumin 4.0 g/dL (3.0-4.8) 05/26/16 07:30 Globulin 3.7 gm/dL 05/26/16 07:30 Albumin/Globulin Ratio 1.1 (1.1-1.8) 05/26/16 07:30 Triglycerides 103 mg/dL (35-160) 05/26/16 07:35 Cholesterol 196 mg/dL (130-200) 05/26/16 07:35 LDL Cholesterol Direct 116 mg/dL (0-129) 05/26/16 07:35 HDL Cholesterol 35 mg/dL (29-60) 05/26/16 07:35 TSH 3rd Generation 5.72 mIU/mL (0.46-4.68) H 05/26/16 07:35 Urine Color Straw (YELLOW) 05/26/16 03:00 Urine Appearance Slight-cloudy (CLEAR) 05/26/16 03:00 Urine pH 6.0 (4.7-8.0) 05/26/16 03:00 Ur Specific [place] <= 1.005 (1.005-1.035) 05/26/16 03:00 Urine Protein Negative mg/dL (<30 mg/dL) 05/26/16 03:00 Urine Glucose (UA) Negative mg/dL (NEGATIVE) 05/26/16 03:00 Urine Ketones Negative mg/dL (NEGATIVE) 05/26/16 03:00 Urine Blood Large (NEGATIVE) H 05/26/16 03:00 Urine Nitrate Negative (NEGATIVE) 05/26/16 03:00 Urine Bilirubin Negative (NEGATIVE) 05/26/16 03:00 Urine Urobilinogen 0.2 E.U./dL (<1 E.U./dL) 05/26/16 03:00 Ur Leukocyte Esterase Negative Marilou/uL (NEGATIVE) 05/26/16 03:00 Urine RBC 1 - 3 /hpf (0-2) 05/26/16 03:00 Urine WBC 0 - 2 /hpf (0-6) 05/26/16 03:00 Ur Epithelial Cells 0 - 2 /hpf (0-5) 05/26/16 03:00 Urine Opiates Screen Negative (NEGATIVE) 05/26/16 03:00 Urine Methadone Screen Negative (NEGATIVE) 05/26/16 03:00 Ur Barbiturates Screen Negative (NEGATIVE) 05/26/16 03:00 Ur Phencyclidine Scrn Negative (NEGATIVE) 05/26/16 03:00 Ur Amphetamines Screen Negative (NEGATIVE) 05/26/16 03:00 U Benzodiazepines Scrn Negative (NEGATIVE) 05/26/16 03:00 U Oth Cocaine Metabols Negative (NEGATIVE) 05/26/16 03:00 U Cannabinoids Screen Negative (NEGATIVE) 05/26/16 03:00 - Hospital Course Hospital Course: attending note: patient seen and examined with resident. Patient is a 46yo female with past medical history of asthma, nephrolithiasis and hx of gestational diabetes that presented c/o right-sided chest pain for the last couple days. patient had recently elevated BP checked by ER and her PMD. Currently blood pressure is better controlled. Started on Norvasc. Chest pain resolved. Cardiac enzymes negative. Cardiology evaluation appreciated. Outpatient stress test ordered. Anemia; chronic with stable hemoglobin. Headache resolved. CT head is negative. Intolerance to fatty food. Dietary education given. Abdominal ultrasound is negative for gall stones. Hypothyroidism;started on levothyroxine. Follow-up with PMD Dr. givens on Tuesday. all the lab results and radiological findings given. The diagnosis and follow-up plan discussed with patient and family in detail by guamanian speaking nurse. diagnosis; Hypertension Obesity Hypothyroidism Attending/Attestation - Attestation I have personally seen and examined this patient.: Yes I have fully participated in the care of the patient.: Yes I have reviewed all pertinent clinical information, including history, physical exam and plan: Yes
--- NOTE | 2016-05-26 16:50 | CARD ---
APPROVED REPORT EKG Measurement Heart [id number] PA [id number] <Conclusion> Normal sinus rhythm Possible Left atrial enlargement Left ventricular hypertrophy Nonspecific T wave abnormality Abnormal ECG
--- NOTE | 2016-05-26 19:52 | CARD ---
APPROVED REPORT EXAM: Two-dimensional and M-mode echocardiogram with Doppler and color Doppler. INDICATION Chest Pain 2D DIMENSIONS Left Atrium (2D)3.8 (1.6-4.0cm)IVSd1.0 (0.7-1.1cm) LVDd4.7 (3.9-5.9cm)PWd1.0 (0.7-1.1cm) LVDs3.2 (2.5-4.0cm)FS (%) 33.1 % LVEF (%)61.7 (>50%) M-Mode DIMENSIONS Aortic Root2.50 (2.2-3.7cm)Aortic Cusp Exc.1.70 (1.5-2.0cm) Aortic Valve AoV Peak Flszsrim636.0cm/Claudia Peak GR.11mmHg Mitral Valve MV E Jrkidzmj25.1cm/sMV A Vqpimugw877.0cm/sE/A ratio0.9 TDI E/Lateral E'0.0E/Medial E'0.0 Tricuspid Valve TR Peak [id number]/sRAP [id number] Peak Gr.21mmHg [id number] LEFT VENTRICLE The left ventricle is normal size. There is normal left ventricular wall thickness. The left ventricular function is normal.EF-60-65% There is normal LV segmental wall motion. Transmitral Doppler flow pattern is Grade III-reversible restrictive diastolic dysfunction. No left ventricle thrombus noted on this study. There is no ventricular septal defect visualized. There is no left ventricular aneurysm. There is no mass noted in the left ventricle. RIGHT VENTRICLE The right ventricle is normal size. There is normal right ventricular wall thickness. The right ventricular systolic function is normal. ATRIA The left atrium size is normal. The right atrium size is normal. The interatrial septum is intact with no evidence for an atrial septal defect. AORTIC VALVE The aortic valve is normal in structure. No aortic regurgitation is present. There is no aortic valvular stenosis. There is no aortic valvular vegetation. MITRAL VALVE The mitral valve is thickened but opens well. Mitral regurgitation is trace. There is no mitral valve stenosis. There is no evidence of mitral valve prolapse. TRICUSPID VALVE The tricuspid valve leaflets are thickened , but open well. There is trace to mild tricuspid regurgitation.RVSP-31 mmof hg. There is no tricuspid valve stenosis. There is no tricuspid valve prolapse or vegetation. PULMONIC VALVE The pulmonary valve is normal in structure. GREAT VESSELS The aortic root is normal in size. The ascending aorta is normal in size. The pulmonary artery is normal. The IVC is normal in size and collapses >50% with inspiration. PERICARDIAL EFFUSION There is no pleural effusion. There is no pericardial effusion. <Conclusion> Normal Chamber Size. EF-65% Mitral regurgitation is trace. There is trace to mild tricuspid regurgitation.RVSP-31 mmof hg. No vegetation or thrombus noted.
[2016-05-27] MEDS ORDERED: Levothyroxine 25 MCG TAB PO SCH (07:30)
== END 2016-05-26 16:02 | disposition home or self-care (01) ==
LOC: ED 21:02 → ERH 05-26 01:50 → 2RSO 05-26 03:47
PROVIDERS: ADMIT Internal Medicine; ATTEND Internal Medicine
DX: R07.9 Chest pain, unspecified (principal); R51 Headache; I10 Essential (primary) hypertension; E03.9 Hypothyroidism, unspecified; R11.2 Nausea with vomiting, unspecified; Z68.34 Body mass index [BMI] 34.0-34.9, adult; D64.9 Anemia, unspecified; E66.01 Morbid (severe) obesity due to excess calories; J45.909 Unspecified asthma, uncomplicated; I51.7 Cardiomegaly; R40.2412 Glasgow coma scale score 13-15, at arrival to emergency department; Z86.32 Personal history of gestational diabetes; Z87.442 Personal history of urinary calculi; Z87.891 Personal history of nicotine dependence; Z83.3 Family history of diabetes mellitus; Z82.49 Family history of ischemic heart disease and other diseases of the circulatory system; Z88.6 Allergy status to analgesic agent; Z87.892 Personal history of anaphylaxis
CPT/HCPCS: 36415; 70450; 71010; 76700; 80053; 80061; 81001; 82550; 83036; 83615; 84443; 84484; 85027; 85610; 85730; 93005; 93306; C9113; G0378; G0480; J1650

== ENCOUNTER 2016-08-12 21:23 | Observation (INO) | payer OTHER ==
[2016-08-12 21:39] VITALS: BMI 33.3
[2016-08-12] MEDS ORDERED: Nitroglycerin 0.6 mg SL Tab SL STA (21:50)
--- NOTE | 2016-08-12 21:54 | ED PDOC ---
Arrival/HPI - General Historian: Patient - History of Present Illness Time/Duration: Prior to Arrival Symptom Onset: Sudden Symptom Course: Unchanged Context: Home - General Chief Complaint: Chest Pain Time Seen by Provider: 08/12/16 21:25 - History of Present Illness Narrative History of Present Illness (Text): 08/12/16 21:55 46 yo female with PMH of HTN, asthma, gestational diabetes and thyroid disease presents to ED with chest pain. 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 Patient states that the chest pain stated about 40 mins prior to arrival. She describes the pain as a squeezing, located on the left side of her chest. Patient states that this morning she took her BP, amlodipine medication as scheduled. She reports headache throughout the day. Patient states she checked her BP in the afternoon, it was elevated and patient decided to take addition dose of amlodipine. She also report blurry vision at onset of chest pain, which has resolved. She also reports dry mouth with a heavy tongue. She admits to having general fatigue, chills and nausea. She denies fever, abd pain , urinary symptoms. PMD: Dr. Marino ([facility]) Past Medical History - Provider Review Nursing Documentation Reviewed: Yes - Infectious Disease Hx of Infectious Diseases: None - Tetanus Immunization Tetanus Immunization: Unknown - Cardiac Hx Cardiac Disorders: Yes Hx Hypertension: Yes - Pulmonary Hx Asthma: Yes - Neurological Hx Headaches: Yes - HEENT Hx HEENT Disorder: No - Renal Hx Renal Disorder: No - Endocrine/Metabolic Hx Endocrine Disorders: Yes Hx Hypothyroidism: Yes - Hematological/Oncological Hx Blood Disorders: No - Integumentary Hx Dermatological Disorder: No - Musculoskeletal/Rheumatological Hx Musculoskeletal Disorders: No Hx Falls: No - Gastrointestinal Hx Gastrointestinal Disorders: No - Genitourinary/Gynecological Hx Genitourinary Disorders: No - Psychiatric Hx Psychophysiologic Disorder: No Hx Anxiety: No Hx Bipolar Disorder: No Hx Depression: No Hx Emotional Abuse: No Hx Hallucinations: No Hx Panic Disorder: No Hx Post Traumatic Stress Disorder: No Hx Psychosis: No Hx Physical Abuse: No Hx Schizophrenia: No Hx Sexual Abuse: No Hx Substance Use: No - Past Surgical History Past Surgical History: No Previous - Anesthesia Hx Anesthesia: No Hx Anesthesia Reactions: No Hx Malignant Hyperthermia: No - Suicidal Assessment Feels Threatened In Home Enviroment: No Family/Social History - Physician Review Nursing Documentation Reviewed: Yes Family/Social History: Diabetes (mother), Hypertension (mother) Smoking Status: Never Smoked Hx Alcohol Use: No Hx Substance Use: No Hx Substance Use Treatment: No Allergies/Home Meds Allergies/Adverse Reactions: Allergies aspirin Allergy (Verified 05/25/16 21:32) ANAPHYLAXIS Review of Systems - Review of Systems Constitutional: Fatigue. absent: Fevers Eyes: Vision Changes (blurry vision, resolved) ENT: Normal. absent: Sore Throat, Rhinorrhea, Sinus Congestion Respiratory: SOB. absent: Cough, Wheezing Cardiovascular: Chest Pain. absent: Edema, Calf Pain, Syncope Gastrointestinal: Nausea. absent: Abdominal Pain, Constipation, Diarrhea, Vomiting Genitourinary Female: Normal. absent: Dysuria, Frequency Musculoskeletal: Normal. absent: Arthralgias, Myalgias Skin: Normal. absent: Rash, Pruritis, Laceration Neurological: Headache. absent: Dizziness, Focal Weakness Endocrine: Polydipsia. absent: Diaphoresis Hemo/Lymphatic: Normal. absent: Easy Bleeding, Easy Bruising Psychiatric: Normal Physical Exam - Systems Exam Head: Present: Atraumatic, Normocephalic Pupils: Present: PERRL. No: Non-Reactive, Pinpoint Extroacular Muscles: Present: EOMI. No: Gaze Palsy, Entrapment Conjunctiva: Present: Normal Mouth: Present: Moist Mucous Membranes Pharnyx: Present: Normal. No: ERYTHEMA, EXUDATE Nose (External): Present: Atraumatic Neck: Present: Normal Range of Motion Respiratory/Chest: Present: Clear to Auscultation, Good Air Exchange. No: Respiratory Distress, Accessory Muscle Use, Wheezes, Rales, Rhonchi, Tachypneic Cardiovascular: Present: Regular Rate and Rhythm, Normal S1, S2, Tachycardic. No: Murmurs Abdomen: Present: Normal Bowel Sounds. No: Tenderness, Distention, Peritoneal Signs Back: Present: Normal Inspection Upper Extremity: Present: Normal Inspection. No: Cyanosis, Edema, Tenderness, Swelling Lower Extremity: Present: Normal Inspection, NORMAL PULSES. No: Edema, CALF TENDERNESS Neurological: Present: GCS=15, CN II-XII Intact, Speech Normal, Motor Func Grossly Intact, Gait Normal Skin: Present: Warm, Dry, Normal Color. No: Rashes, Diaphoretic, Hot, Cold, Pale Psychiatric: Present: Alert, Oriented x 3, Normal Insight, Normal Concentration , Anxious Vital Signs Temp Pulse Resp BP Pulse Ox 08/12/16 23:11 143/92 H 08/12/16 22:03 92 H 16 144/98 H 99 08/12/16 21:32 98.2 F 106 H 20 167/97 H 100 Medical Decision Making - EKG Interpretation Interpreted by ED Physician: Yes Type: 12 lead EKG ED Course and Treatment: Patient seen and examined with resident. Came up with treatment and disposition plan with resident.. (Enrique Prakash) 08/12/16 22:05 Impression: 46 yo female with PMH of HTN, asthma, gestational diabetes and thyroid disease presents to ED with chest pain. differential diagnoses includes but not limited to: - ACS Plan: - CBC, CMP - cardiac iso - cxr - ekg - nitro - EKG: rate 102, rhythm: sinus tachycardia with non specific ST changes. - will give nitro for chest pain, can not give asa due to allergic reaction 08/12/16 23:26 - Patient continues to complain of chest pain. 1st trops are negative. Spoke with resident, Dr. Coy and Dr. Oneill, agreed for admission to observation on tele. Patient is agreeable for admission. (Darleen Pereira) - Lab Interpretations Lab Results: 08/12/16 22:24 08/12/16 22:24 Lab Results 08/12/16 22:24: TSH 3rd Generation 5.86 H 08/12/16 22:24: Phosphorus 1.8 L, Magnesium 1.7, Triglycerides 222 H, Cholesterol 209 H, LDL Cholesterol Direct 126, HDL Cholesterol 33 08/12/16 22:24: Sodium 138, Potassium 3.4 L, Chloride 103, Carbon Dioxide 23, Anion Gap 15, BUN 13, Creatinine 0.5, Est GFR ( Amer) > 60, Est GFR (Non- Af Amer) > 60, Random Glucose 170 H, Calcium 9.4, Total Bilirubin 0.5, AST 21, ALT 34, Alkaline Phosphatase 89, Lactate Dehydrogenase 396, Total Creatine Kinase 50, Troponin I < 0.01, Total Protein 7.9, Albumin 4.4, Globulin 3.6, Albumin/Globulin Ratio 1.2 08/12/16 22:24: PT 11.1, INR 1.03, APTT 28.7 08/12/16 22:24: WBC 6.6, RBC 4.81, Hgb 12.8, Hct 36.1, MCV 75.1 L, MCH 26.6, MCHC 35.5, RDW 16.7 H, Plt Count 153, MPV 10.3, Gran % 43.2 L, Lymph % (Auto) 49.5 H, Whiteside % (Auto) 5.9, Eos % (Auto) 1.2 L, Baso % (Auto) 0.2, Gran # 2.87, Lymph # 3.3, Whiteside # 0.4, Eos # 0.1, Baso # 0.01 - RAD Interpretation Radiology Orders: 08/12/16 21:50 CHEST PORTABLE [RAD] Stat - EKG Interpretation EKG Interpretation (Text): 08/12/16 22:09 EKG: rate 102 bpm rhythm: sinus tachycardia with non specific ST changes. 08/12/16 22:09 (Randall,Darleen) - Medication Orders Current Medication Orders: Amlodipine Besylate (Norvasc) 5 mg PO DAILY [place] Enoxaparin Sodium (Lovenox) 40 mg SC DAILY [place] PRN Reason: Protocol Levothyroxine Sodium (Synthroid) 25 mcg PO ACB [place] Pantoprazole Sodium (Protonix Inj) 40 mg IVP DAILY [place] Discontinued Medications Nitroglycerin (Nitrostat Sl Tab) 0.6 mg SL STAT STA Stop: 08/12/16 21:51 Last Admin: 08/12/16 22:35 Dose: Nitroglycerin (Nitrostat Sl Tab) 0.4 mg SL STAT STA Stop: 08/12/16 23:05 Last Admin: 08/12/16 23:13 Dose: Nitroglycerin (Nitrostat Sl Tab) Confirm Administered Dose 0.4 mg SL .STK-MED ONE Stop: 08/12/16 23:10 Last Admin: 08/12/16 23:13 Dose: 0.4 mg Disposition/Present on Arrival - Present on Arrival Any Indicators Present on Arrival: No History of DVT/PE: No History of Uncontrolled Diabetes: No Urinary Catheter: No History of Decub. Ulcer: No History Surgical Site Infection Following: None - Disposition Have Diagnosis and Disposition been Completed?: Yes Disposition Time: 23:25 Patient Plan: Observation - Disposition Diagnosis: Chest pain Disposition: HOSPITALIZED Patient Problems: Current Active Problems Problem Status Onset Chest pain Acute Condition: FAIR
[2016-08-12 22:25] LABS: ADD MANUAL DIFF? NO
[2016-08-12 22:35] LABS: BASO # 0.01 K/mm3 (0.0-2.0); BASO % 0.2 % (0.0-3.0); EOS # 0.1 (0.0-0.7); EOS % 1.2 % (1.5-5.0); GRAN # 2.87 (1.4-6.5); GRAN % 43.2 % (50.0-68.0); HEMATOCRIT 36.1 % (36.0-48.0); LYMPH # 3.3 (1.2-3.4); LYMPH % 49.5 % (22.0-35.0); MEAN CELL VOLUME 75.1 fL (80.0-105.0); MEAN CORPUSCULAR HEMOGLOBIN 26.6 pg (25.0-35.0); MEAN CORPUSCULAR HGB CONC 35.5 g/dl (31.0-37.0); MEAN PLATELET VOLUME 10.3 fl (7.0-11.0); MONO # 0.4 (0.1-0.6); MONO % 5.9 % (1.0-6.0); PLATELET COUNT 153 10^3/uL (120.0-450.0); RED CELL DISTRIBUTION WIDTH 16.7 % (11.5-14.5); WHITE BLOOD COUNT 6.6 10^3/ul (4.5-11.0)
[2016-08-12 22:42] LABS: ALB/GLOB RATIO 1.2 (1.1-1.8); ALKALINE PHOSPHATASE 89 U/L (38-133); ALT/SGPT 34 U/L (7-56); AST/SGOT 21 U/L (15-39); BILIRUBIN,TOTAL 0.5 mg/dL (0.2-1.3); BLOOD UREA NITROGEN 13 mg/dL (7-21); CALCIUM 9.4 mg/dL (8.4-10.5); CARBON DIOXIDE 23 mmol/L (21-33); GFR AFRICAN-AMERICAN > 60; GLUCOSE,RANDOM 170 mg/dL (70-110); TOTAL PROTEIN 7.9 g/dL (5.8-8.3)
[2016-08-12 22:47] LABS: CHLORIDE 103 mmol/L (98-107); INR 1.03 (0.93-1.08); PARTIAL THROMBOPLASTIN TIME 28.7 Seconds (23.7-30.8); POTASSIUM 3.4 mmol/L (3.6-5.0); SODIUM 138 mmol/L (132-148)
[2016-08-12 22:54] LABS: TROPONIN I < 0.01 ng/mL
--- NOTE | 2016-08-13 00:22 | CP.PCM.HP ---
History of Present Illness - History of Present Illness History of Present Illness: cc: Chest pain HPI: Patient is a 46yo female with past medical history of asthma, hypertension , nephrolithiasis, hypothyroidism and gestational diabetes that presented c/o chest pain. She reported that the pain started approximately 1 hour prior to arrival. She described the chest pain as a squeezing/pressure localizing to the left side of her chest associated with palpitations, shortness of breath, headache and blurry vision. Patient stated she she took her blood pressure this morning and it was ~170/110. She reported taking her amlodipine 5mg medication in the morning and subsequently took an additional dose of amlodipine when her blood pressure remained elevated and she began to experience a headache. She reported resolution of her blurry vision in the ED. She denied fever, chills, cough, abdominal pain, nausea, vomiting, focal weakness, numbness, tingling. 12 point ROS as per HPI above, otherwise negative PMHx: Asthma, nephrolithiasis, gestational diabetes, hypertension, hypothyroidism PSHx: liposuction Medications: synthroid 25mcg daily, amlodipine 5mg daily Allergies: aspirin Family Hx: Mother: HTN, HLD, DM2 ; Father: DM2, HTN, CAD Social Hx: Former smoker quit 9yrs ago (smoked 2-3 cig/day for ~4yrs); denies illicit drugs and alcohol use Present on Admission - Present on Admission Any Indicators Present on Admission: No Past Patient History - Infectious Disease Hx of Infectious Diseases: None - Tetanus Immunizations Tetanus Immunization: Unknown - Past Social History Smoking Status: Never Smoked - CARDIAC Hx Cardiac Disorders: Yes Hx Hypertension: Yes - PULMONARY Hx Asthma: Yes - HEENT Hx HEENT Problems: No - RENAL Hx Chronic Kidney Disease: No - ENDOCRINE/METABOLIC Hx Endocrine Disorders: Yes Hx Hypothyroidism: Yes - HEMATOLOGICAL/ONCOLOGICAL Hx Blood Disorders: No - INTEGUMENTARY Hx Dermatological Problems: No - MUSCULOSKELETAL/RHEUMATOLOGICAL Hx Musculoskeletal Disorders: No Hx Falls: No - GASTROINTESTINAL Hx Gastrointestinal Disorders: No - GENITOURINARY/GYNECOLOGICAL Hx Genitourinary Disorders: No - PSYCHIATRIC Hx Psychophysiologic Disorder: No Hx Anxiety: No Hx Bipolar Disorder: No Hx Depression: No Hx Emotional Abuse: No Hx Hallucinations: No Hx Panic Symptoms: No Hx Post Traumatic Stress Disorder: No Hx Psychosis: No Hx Physical Abuse: No Hx Schizophrenia: No Hx Sexual Abuse: No Hx Substance Use: No - SURGICAL HISTORY Hx Surgeries: No - ANESTHESIA Hx Anesthesia: No Hx Anesthesia Reactions: No Hx Malignant Hyperthermia: No Meds Allergies/Adverse Reactions: Allergies Allergy/AdvReac Type Severity Reaction Status Date / Time aspirin Allergy ANAPHYLAXIS Verified 05/25/16 21:32 Physical Exam - Constitutional Appears: Well, Non-toxic, No Acute Distress - Head Exam Head Exam: ATRAUMATIC, NORMAL INSPECTION, NORMOCEPHALIC - Eye Exam Eye Exam: EOMI, PERRL - ENT Exam ENT Exam: Mucous Membranes Moist - Neck Exam Neck exam: Positive for: Normal Inspection. Negative for: Lymphadenopathy, Tenderness, Thyromegaly - Respiratory Exam Respiratory Exam: Clear to Auscultation Bilateral, NORMAL BREATHING PATTERN. absent: Accessory Muscle Use, Chest Wall Tenderness, Decreased Breath Sounds, Rales, Rhonchi, Wheezes, Stridor - Cardiovascular Exam Cardiovascular Exam: RRR, +S1, +S2. absent: Gallop, JVD, Rubs, Systolic Murmur - GI/Abdominal Exam GI & Abdominal Exam: Normal Bowel Sounds, Soft. absent: Distended, Firm, Guarding, Rebound, Rigid, Tenderness - Extremities Exam Extremities exam: Positive for: normal inspection, pedal pulses present. Negative for: calf tenderness, pedal edema, tenderness - Neurological Exam Neurological exam: Alert, CN II-XII Intact, Oriented x3 - Psychiatric Exam Psychiatric exam: Normal Affect, Normal Mood - Skin Skin Exam: Dry, Intact, Normal Color, Warm Results - Vital Signs Recent Vital Signs: Last Vital Signs Temp 98.2 F 08/12/16 21:32 Pulse 92 H 08/12/16 22:03 Resp 16 08/12/16 22:03 BP 143/92 H 08/12/16 23:11 Pulse Ox 99 08/12/16 22:03 - Labs Result Diagrams: 08/12/16 22:24 08/12/16 22:24 Assessment & Plan - Assessment and Plan (Free Text) Plan: 46yo female with history of hypertension, asthma, hypothyroidism presents c/o chest pain 1. Chest pain r/o acs -EKG revealed sinus tachycardia at 102bpm with no acute ST-T wave changes -CXR revealed no active disease -Troponin negative x1, will trend -Repeat EKG in AM -Telemetry observation -ASA not given due to allergy (reported anaphylactic reaction) -TSH, A1c, Lipid panel pending -Cardiology consulted - Dr. Ferguson 2. Hypothyroidism -Continue synthroid 25mcg daily 3. Hypertension -Continue amlodipine 5mg po daily 4. GI/DVT prophylaxis -Protonix/Lovenox Patient seen and case discussed with attending, Dr. Oneill - Date & Time Date: 08/13/16 Time: 00:30
[2016-08-13 02:47] LABS: MAGNESIUM 1.7 mg/dL (1.7-2.2); PHOSPHOROUS 1.8 mg/dL (2.5-4.5)
[2016-08-13 05:11] VITALS: O2SAT 95
[2016-08-13] MEDS ORDERED: Levothyroxine 25 MCG TAB PO SCH ×2 (07:30→11:06)
[2016-08-13] MEDS ORDERED: Enoxaparin 40 mg Syringe SC SCH (10:00)
[2016-08-13] MEDS: Potassium & Sodium Phosphate PO SCH ×2 (10:07→13:33)
--- NOTE | 2016-08-13 11:48 | CON ---
DATE: 08/13/2016 INDICATIONS: Chest pain. HISTORY OF PRESENT ILLNESS: A 46-year-old woman admitted through the Emergency Room last night with a 1-hour episode of pressure-like left-sided chest discomfort with palpitations, shortness of breath and headache. She was hypertensive. She noted blurry vision. Her symptoms resolved. She is currently asymptomatic. There is no orthopnea, PND, syncope, presyncope, lightheadedness, dizziness, vertigo, palpitations, edema, claudication, fever, chills, cough, sputum production, hemoptysis, abdominal pain, nausea, vomiting, diarrhea, constipation, or melena. PAST MEDICAL HISTORY: Notable for asthma, renal stones, gestational diabetes, hypertension, hypothyroidism. There is no history of rheumatic fever, myocardial infarction, angina, congestive heart failure, arrhythmia, stroke, TIA or gout. MEDICATIONS: At the time of admission included Synthroid, amlodipine. ALLERGIES: SHE NOTES AN ALLERGY TO ASPIRIN. SOCIAL HISTORY: She lives at home. She is ambulatory. She is a former smoker. She does not drink alcohol or use drugs. FAMILY HISTORY: Notable for diabetes and hypertension. REVIEW OF SYSTEMS: Ten point review of systems otherwise unremarkable except as noted above. PHYSICAL EXAMINATION: GENERAL: She is a well-developed woman in no acute distress. VITAL SIGNS: Unremarkable. She is in sinus rhythm at 74 beats per minute, afebrile, blood pressure 96/63, previously 132/87, respirations 16-20, O2 sat 95 -99% on room air. HEENT: Reveals no neck vein distention, thyromegaly, or carotid bruits. Mucous membranes are moist. Conjunctivae are pink. NECK: Supple. LUNGS: Meyer clear. HEART: Revealed normal first and second heart sounds. ABDOMEN: Soft, bowel sounds present. No mass, organomegaly, tenderness, rebound, or guarding. No CVA tenderness. No palpable abdominal aortic aneurysm. EXTREMITIES: Revealed no cyanosis, clubbing, or edema. NEUROLOGIC: She is awake, alert, oriented and intact. PSYCHIATRIC: Normal as to mood and affect. SKIN: Warm and dry. No rash or cellulitis. LABORATORY AND IMAGING: EKG demonstrates regular sinus rhythm with nonspecific ST-wave changes. Chest x-ray report is not in the system. Apparently, it was unremarkable in the ER. CBC is unremarkable. PT, INR, PTT unremarkable. Potassium 3.4, sodium 138, chloride 103, CO2 23, BUN 13, creatinine 0.5, blood sugar 170, magnesium 1.7. LFTs unremarkable. Two troponins are negative. CK 50. Total cholesterol 209, triglycerides 222, LDL 126, HDL 33. TSH is elevated at 5.86. IMPRESSION: The patient is a 46-year-old woman with chest pain. There were negative troponins and nonspecific ST wave changes on her EKG. She has a history of asthma, hypertension, hypothyroidism, she is a former smoker, with a history of gestational diabetes. At this time, she is on telemetry. I will order an echocardiogram. I would arrange a nuclear stress test for her. This can be on an outpatient basis unless she continues to have chest pain or other cardiac symptoms. She is getting Lipitor, Lovenox, amlodipine, pantoprazole, Synthroid. We need to followup on her chest x-ray. She can be out of bed. I will discuss the case with you. Mook Ferguson MD cc: [id number] TT: 08/13/2016 11:47:45 Confirmation # [id number] Dictation # [id number] MTDD
[2016-08-13 11:52] VITALS: BP 103/66; RESP 18; TEMP 98
[2016-08-13 14:26] VITALS: PULSE 72
--- NOTE | 2016-08-13 15:31 | CP.PCM.DIS ---
<Guilherme Lombardi - Last Filed: 08/13/16 15:27> Provider - Provider Date of Admission: 08/12/16 23:28 Attending physician: Dana Dahl MD Primary care physician: NO PRIMARY CARE PROVIDER Consults: cardiology - Dr. Ferguson Time Spent in preparation of Discharge (in minutes): 35 Diagnosis - Discharge Diagnosis (1) Chest pain Status: Acute Hospital Course - Lab Results Lab Results: Most Recent Lab Values WBC 6.6 10^3/ul (4.5-11.0) 08/12/16 22:24 RBC 4.81 10^6/uL (3.5-6.1) 08/12/16 22:24 Hgb 12.8 gm/dL (12.0-16.0) 08/12/16 22: Hct 36.1 % (36.0-48.0) 08/12/16 22: MCV 75.1 fL (80.0-105.0) L 08/12/16 22: MCH 26.6 pg (25.0-35.0) 08/12/16 22: MCHC 35.5 g/dl (31.0-37.0) 08/12/16 22: RDW 16.7 % (11.5-14.5) H 08/12/16 22:24 Plt Count 153 10^3/uL (120.0-450.0) 08/12/16 22:24 MPV 10.3 fl (7.0-11.0) 08/12/16 22: Gran % 43.2 % (50.0-68.0) L 08/12/16 22:24 Lymph % (Auto) 49.5 % (22.0-35.0) H 08/12/16 22:24 [place] % (Auto) 5.9 % (1.0-6.0) 08/12/16 22: Eos % (Auto) 1.2 % (1.5-5.0) L 08/12/16 22:24 Baso % (Auto) 0.2 % (0.0-3.0) 08/12/16 22:24 Gran # 2.87 (1.4-6.5) 08/12/16 22: Lymph # 3.3 (1.2-3.4) 08/12/16 22:24 [place] # 0.4 (0.1-0.6) 08/12/16 22:24 Eos # 0.1 (0.0-0.7) 08/12/16 22:24 Baso # 0.01 K/mm3 (0.0-2.0) 08/12/16 22:24 PT 11.1 Seconds (9.9-11.8) 08/12/16 22:24 INR 1.03 (0.93-1.08) 08/12/16 22:24 APTT 28.7 Seconds (23.7-30.8) 08/12/16 22:24 Sodium 138 mmol/L (132-148) 08/12/16 22:24 Potassium 3.4 mmol/L (3.6-5.0) L 08/12/16 22:24 Chloride 103 mmol/L (98-107) 08/12/16 22:24 Carbon Dioxide 23 mmol/L (21-33) 08/12/16 22:24 Anion Gap 15 (10-20) 08/12/16 22:24 BUN 13 mg/dL (7-21) 08/12/16 22:24 Creatinine 0.5 mg/dL (0.5-1.4) 08/12/16 22:24 Est GFR ( Amer) > 60 08/12/16 22:24 Est GFR (Non-Af Amer) > 60 08/12/16 22:24 Random Glucose 170 mg/dL (70-110) H 08/12/16 22:24 Hemoglobin A1c 5.5 % (4.2-6.5) 08/12/16 22:24 Calcium 9.4 mg/dL (8.4-10.5) 08/12/16 22:24 Phosphorus 1.8 mg/dL (2.5-4.5) L 08/12/16 22:24 Magnesium 1.7 mg/dL (1.7-2.2) 08/12/16 22:24 Total Bilirubin 0.5 mg/dL (0.2-1.3) 08/12/16 22:24 AST 21 U/L (15-39) 08/12/16 22:24 ALT 34 U/L (7-56) 08/12/16 22:24 Alkaline Phosphatase 89 U/L (38-133) 08/12/16 22:24 Lactate Dehydrogenase 396 U/L (333-699) 08/12/16 22:24 Total Creatine Kinase 50 U/L (35-230) 08/12/16 22:24 Troponin I < 0.01 ng/mL 08/13/16 11:20 Total Protein 7.9 g/dL (5.8-8.3) 08/12/16 22:24 Albumin 4.4 g/dL (3.0-4.8) 08/12/16 22:24 Globulin 3.6 gm/dL 08/12/16 22:24 Albumin/Globulin Ratio 1.2 (1.1-1.8) 08/12/16 22:24 Triglycerides 222 mg/dL (35-160) H 08/12/16 22:24 Cholesterol 209 mg/dL (130-200) H 08/12/16 22:24 LDL Cholesterol Direct 126 mg/dL (0-129) 08/12/16 22:24 HDL Cholesterol 33 mg/dL (29-60) 08/12/16 22:24 TSH 3rd Generation 5.86 mIU/mL (0.46-4.68) H 08/12/16 22:24 - Hospital Course Hospital Course: Patient is a 46yo female with past medical history of asthma, hypertension, nephrolithiasis, hypothyroidism and gestational diabetes that presented c/o chest pain. She reported that the pain started approximately 1 hour prior to arrival. She described the chest pain as a squeezing/pressure localizing to the left side of her chest associated with palpitations, shortness of breath, headache and blurry vision. Patient stated she she took her blood pressure this morning and it was ~170/110. She reported taking her amlodipine 5mg medication in the morning and subsequently took an additional dose of amlodipine when her blood pressure remained elevated and she began to experience a headache. She reported resolution of her blurry vision in the ED. She denied fever, chills, cough, abdominal pain, nausea, vomiting, focal weakness, numbness, tingling. The patient was admitted with chest pain and to r/u acute coronary syndrome. Cardiac evaluation was unremarkable for acute ischemia. Troponins were found to be negative x3. EKG revealed sinus tachycardia without evidence of ischemia. Cardiology was consulted and evaluated the patient. Cardiology deemed the patient cleared for discharge with the recommendation to f/u for outpatient exercise stress testing. The patient was given a rx for stress test evaluation. The [place] [facility] [place] the [place] regarding an appointment. Lab results revealed hyperlipidemia. The patient was notified and started on Lipitor 10mg daily. An rx was given and her medications were delivered to her room. Lab results also revealed elevated TSH. The patient has a hx of hypothyoidism diagnosed about 2 months ago. Synthroid was increased from 25mg to 37.5. This medication was delivered to the patient's room prior to discharge. Discharge Exam - Head Exam Head Exam: ATRAUMATIC, NORMAL INSPECTION, NORMOCEPHALIC - Eye Exam Eye Exam: EOMI, PERRL - ENT Exam ENT Exam: Mucous Membranes Moist - Respiratory Exam Respiratory Exam: Clear to PA & Lateral, NORMAL BREATHING PATTERN. absent: Rales, Rhonchi - Cardiovascular Exam Cardiovascular Exam: REGULAR RHYTHM, +S1, +S2 - GI/Abdominal Exam GI & Abdominal Exam: Normal Bowel Sounds, Soft. absent: Tenderness - Extremities Exam Extremities exam: full ROM, pedal pulses present - Neurological Exam Neurological exam: Alert, Oriented x3 - Psychiatric Exam Psychiatric exam: Depressed, Normal Affect - Skin Skin Exam: Dry, Warm Discharge Plan - Discharge Medications Prescriptions: Atorvastatin [Lipitor] 10 mg PO DIN #30 tab Levothyroxine [Synthroid] 37.5 mcg PO ACB #30 tab Phosphorus/Potassium/Sodium [Neutra-Phos] 1 pkt PO TID #30 packet - Follow Up Plan Condition: FAIR Disposition: HOME/ ROUTINE Instructions: Noncardiac Chest Pain (GEN), Hyperlipidemia (DC) Additional Instructions: Please see Dr. Ferguson for cardiac stress testing. Staff will help you make an appointment. The number for the stress test lab here is [phone]. Your labs indicate you have elevated cholesterol. You are started on a new medication called Lipitor 10mg. Take one tablet daily. Your labs indicate your phosphorous levels are low. You are prescribed a powder called neutriphos. Take one packet three times a day. Your Synthroid was increased to 37.5mg. Take one tablet daily. z Please see your primary care physician within one week. Referrals: [facility] [place]] Mook Ferguson MD [Staff Provider] - <Nabila FORREST,Dana - Last Filed: 08/13/16 17:30> Provider - Provider Date of Admission: 08/12/16 23:28 Attending physician: Dana Dahl MD Primary care physician: NO PRIMARY CARE PROVIDER Hospital Course - Lab Results Lab Results: Most Recent Lab Values WBC 6.6 10^3/ul (4.5-11.0) 08/12/16 22:24 RBC 4.81 10^6/uL (3.5-6.1) 08/12/16 22:24 Hgb 12.8 gm/dL (12.0-16.0) 08/12/16 22: Hct 36.1 % (36.0-48.0) 08/12/16 22: MCV 75.1 fL (80.0-105.0) L 08/12/16: MCH 26.6 pg (25.0-35.0) 08/12/16: MCHC 35.5 g/dl (31.0-37.0) 08/12/16: RDW 16.7 % (11.5-14.5) H 08/12/16 22:24 Plt Count 153 10^3/uL (120.0-450.0) 08/12/16 22: MPV 10.3 fl (7.0-11.0) 08/12/16 22: Gran % 43.2 % (50.0-68.0) L 08/12/16:24 Lymph % (Auto) 49.5 % (22.0-35.0) H 08/12/16:24 [place] % (Auto) 5.9 % (1.0-6.0) 08/12/16 22:24 Eos % (Auto) 1.2 % (1.5-5.0) L 08/12/16 22:24 Baso % (Auto) 0.2 % (0.0-3.0) 08/12/16: Gran # 2.87 (1.4-6.5) 08/12/16 22:24 Lymph # 3.3 (1.2-3.4) 08/12/16 22:24 [place] # 0.4 (0.1-0.6) 08/12/16 22: Eos # 0.1 (0.0-0.7) 08/12/16 22:24 Baso # 0.01 K/mm3 (0.0-2.0) 08/12/16 22:24 PT 11.1 Seconds (9.9-11.8) 08/12/16 22:24 INR 1.03 (0.93-1.08) 08/12/16 22:24 APTT 28.7 Seconds (23.7-30.8) 08/12/16 22:24 Sodium 138 mmol/L (132-148) 08/12/16 22:24 Potassium 3.4 mmol/L (3.6-5.0) L 08/12/16 22:24 Chloride 103 mmol/L (98-107) 08/12/16 22:24 Carbon Dioxide 23 mmol/L (21-33) 08/12/16 22:24 Anion Gap 15 (10-20) 08/12/16 22:24 BUN 13 mg/dL (7-21) 08/12/16 22:24 Creatinine 0.5 mg/dL (0.5-1.4) 08/12/16 22:24 Est GFR ( Amer) > 60 08/12/16 22:24 Est GFR (Non-Af Amer) > 60 08/12/16 22:24 Random Glucose 170 mg/dL (70-110) H 08/12/16 22:24 Hemoglobin A1c 5.5 % (4.2-6.5) 08/12/16 22:24 Calcium 9.4 mg/dL (8.4-10.5) 08/12/16 22:24 Phosphorus 1.8 mg/dL (2.5-4.5) L 08/12/16 22:24 Magnesium 1.7 mg/dL (1.7-2.2) 08/12/16 22:24 Total Bilirubin 0.5 mg/dL (0.2-1.3) 08/12/16 22:24 AST 21 U/L (15-39) 08/12/16 22:24 ALT 34 U/L (7-56) 08/12/16 22:24 Alkaline Phosphatase 89 U/L (38-133) 08/12/16 22:24 Lactate Dehydrogenase 396 U/L (333-699) 08/12/16 22:24 Total Creatine Kinase 50 U/L (35-230) 08/12/16 22:24 Troponin I < 0.01 ng/mL 08/13/16 11:20 Total Protein 7.9 g/dL (5.8-8.3) 08/12/16 22:24 Albumin 4.4 g/dL (3.0-4.8) 08/12/16 22:24 Globulin 3.6 gm/dL 08/12/16 22:24 Albumin/Globulin Ratio 1.2 (1.1-1.8) 08/12/16 22:24 Triglycerides 222 mg/dL (35-160) H 08/12/16 22:24 Cholesterol 209 mg/dL (130-200) H 08/12/16 22:24 LDL Cholesterol Direct 126 mg/dL (0-129) 08/12/16 22:24 HDL Cholesterol 33 mg/dL (29-60) 08/12/16 22:24 TSH 3rd Generation 5.86 mIU/mL (0.46-4.68) H 08/12/16 22:24 Attending/Attestation - Attestation I have personally seen and examined this patient.: Yes I have fully participated in the care of the patient.: Yes I have reviewed all pertinent clinical information, including history, physical exam and plan: Yes Notes (Text): 08/13/16 17:26 Patient was seen and examined with medical affairs director. 46 yrs old female with PMH of HTN,Hypothyroidism and obesity was admitted with uncontrol HTN and atypical chest pain.EKG was negative for acute ischemic changes.Serial troponins were normal.Patient was evaluated by cardiology and out patient stress test has been reommended.Patient is pain free here in the hospital.Blood pressure has come back to normal.The issue of compliance with medication was discussed in detail. Her TSH level was high, synthroid dose has been increased to 37.5 mg po daily. Her Phosphorus level was level and was given replacement and prescription for 3 days at the time of discharge. Management plan was discussed in detail with patient.Education was provided
--- NOTE | 2016-08-13 18:01 | CARD ---
APPROVED REPORT EKG Measurement Heart [id number] 152P40 [id number] <Conclusion> Normal sinus rhythm Nonspecific T wave abnormality Prolonged QT Abnormal ECG
--- NOTE | 2016-08-13 18:10 | CARD ---
APPROVED REPORT EKG Measurement Heart [id number] CO 124P27 [id number] <Conclusion> Sinus tachycardia Minimal voltage criteria for LVH, may be normal variant Borderline ECG
== END 2016-08-13 15:17 | disposition home or self-care (01) ==
LOC: ED 21:23 → ERH 23:28 → 2RSO 08-13 01:46
PROVIDERS: ADMIT Internal Medicine; ATTEND Internal Medicine
DX: R07.89 Other chest pain (principal); I10 Essential (primary) hypertension; Z86.32 Personal history of gestational diabetes; J45.909 Unspecified asthma, uncomplicated; E03.9 Hypothyroidism, unspecified; R51 Headache; R00.2 Palpitations; H53.8 Other visual disturbances; E78.5 Hyperlipidemia, unspecified; E66.9 Obesity, unspecified; Z68.33 Body mass index [BMI] 33.0-33.9, adult; Z87.891 Personal history of nicotine dependence; Z87.442 Personal history of urinary calculi; Z88.6 Allergy status to analgesic agent; Z82.49 Family history of ischemic heart disease and other diseases of the circulatory system; Z83.3 Family history of diabetes mellitus
CPT/HCPCS: 36415; 80053; 80061; 82550; 83036; 83615; 83735; 84100; 84443; 84484; 85025; 85610; 85730; 93005; 99285; C9113; G0378; J1650

== ENCOUNTER 2017-07-21 15:49 | Emergency (ER) | payer OTHER ==
[2017-07-21 15:55] VITALS: BMI 32.8
[2017-07-21 16:01] VITALS: TEMP 98.1
--- NOTE | 2017-07-21 16:40 | ED PDOC ---
Arrival/HPI - General Chief Complaint: Chest Pain Time Seen by Provider: 07/21/17 16:01 Historian: Patient - History of Present Illness Narrative History of Present Illness (Text): 07/21/17 16:40 This 46 yo female with PMH of HTN, anxiety, asthma, gestational diabetes and thyroid disease presents to ED with chest pain x 4 days. Patient stated pain came suddenly, with SOB, palpitation, hand tingling which last several minutes. Patient stated symptoms has been intermittent, but it has worsen today. Patient stated symptoms are similar to previous ED visit. Patient stated she saw her private [employer] last year, who told patient her symptoms were from anxiety. Patient admits refusing stress test. PERC negative for PE Time/Duration: Other (see hpi) Context: Home Past Medical History - Provider Review Nursing Documentation Reviewed: Yes - Infectious Disease Hx of Infectious Diseases: None - Tetanus Immunization Tetanus Immunization: Unknown - Cardiac Hx Cardiac Disorders: Yes Hx Hypertension: Yes - Pulmonary Hx Asthma: Yes - Neurological Hx Headaches: Yes - HEENT Hx HEENT Disorder: No - Renal Hx Renal Disorder: No - Endocrine/Metabolic Hx Endocrine Disorders: Yes Hx Hypothyroidism: Yes - Hematological/Oncological Hx Blood Disorders: No - Integumentary Hx Dermatological Disorder: No - Musculoskeletal/Rheumatological Hx Musculoskeletal Disorders: No Hx Falls: No - Gastrointestinal Hx Gastrointestinal Disorders: No - Genitourinary/Gynecological Hx Genitourinary Disorders: No - Psychiatric Hx Psychophysiologic Disorder: No Hx Anxiety: No Hx Bipolar Disorder: No Hx Depression: No Hx Emotional Abuse: No Hx Hallucinations: No Hx Panic Disorder: No Hx Post Traumatic Stress Disorder: No Hx Psychosis: No Hx Physical Abuse: No Hx Schizophrenia: No Hx Sexual Abuse: No Hx Substance Use: No - Past Surgical History Past Surgical History: No Previous - Anesthesia Hx Anesthesia: No Hx Anesthesia Reactions: No Hx Malignant Hyperthermia: No - Suicidal Assessment Feels Threatened In Home Enviroment: No Family/Social History - Physician Review Nursing Documentation Reviewed: Yes Family/Social History: Other (noncontributory) Smoking Status: Never Smoked Hx Alcohol Use: No Hx Substance Use: No Hx Substance Use Treatment: No Allergies/Home Meds Allergies/Adverse Reactions: Allergies aspirin Allergy (Verified 05/25/16 21:32) ANAPHYLAXIS Review of Systems - Review of Systems Constitutional: Normal. absent: Fatigue, Weight Change, Fevers Eyes: Normal ENT: Normal Respiratory: Normal Cardiovascular: Chest Pain, Palpitations. absent: Edema, Calf Pain, EUCEDA, Orthopnea, Syncope Gastrointestinal: Normal Genitourinary Female: Normal Musculoskeletal: Normal Skin: Normal Neurological: Normal. absent: Headache, Dizziness Endocrine: Normal Hemo/Lymphatic: Normal Psychiatric: Anxiety. absent: Depression, Suicidal Ideation Physical Exam Vital Signs Temp Pulse Resp BP Pulse Ox 07/21/17 18:25 78 17 135/87 100 07/21/17 16:00 98.1 F 80 18 137/92 H 99 Temperature: Afebrile Blood Pressure: Normal Pulse: Regular Respiratory Rate: Normal Appearance: Positive for: Well-Appearing, Non-Toxic, Comfortable Pain Distress: None Mental Status: Positive for: Alert and Oriented X 3 - Systems Exam Head: Present: Atraumatic, Normocephalic Pupils: Present: PERRL Extroacular Muscles: Present: EOMI Conjunctiva: Present: Normal Mouth: Present: Moist Mucous Membranes Neck: Present: Normal Range of Motion, Trachea Midline. No: Meningeal Signs, MIDLINE TENDERNESS, Paraspinal Tenderness, Lymphadenopathy Respiratory/Chest: Present: Clear to Auscultation, Good Air Exchange. No: Respiratory Distress, Accessory Muscle Use Cardiovascular: Present: Regular Rate and Rhythm, Normal S1, S2. No: Murmurs Abdomen: Present: Normal Bowel Sounds. No: Tenderness, Distention, Peritoneal Signs, Rebound, Feeding Tubes Back: Present: Normal Inspection. No: CVA Tenderness Upper Extremity: Present: Normal Inspection, Normal ROM. No: Cyanosis, Edema Lower Extremity: Present: Normal Inspection, Normal ROM. No: Edema Neurological: Present: GCS=15, CN II-XII Intact, Speech Normal Skin: Present: Warm, Dry, Normal Color. No: Rashes Psychiatric: Present: Alert, Oriented x 3, Normal Insight, Normal Concentration. No: Suicidal Ideation, Homicidal Ideation Medical Decision Making ED Course and Treatment: 07/21/17 16:48 Patient presents with CP x 4. Patient had similar symptoms last year , and she was admitted for observation. Patient saw her private [employer], who told her it was anxiety. She refused to have stress test done. I ordered -labs, ua, ekg, cxr 07/21/17 18:55 I reviewed with patient labs result, EKG, UA, CXR result. Patient developed left sided CP for over a day. Troponin and EKG were negative,. Patient was recommended to f/u PMD in 1-2 days. To return to emergency if symptoms worsen. Patient feels better. Discussed results and plan with patient who expresses understanding. All questions answered and there is agreement with the plan to discharge home with instructions. Patient stable for discharge. Return if symptoms persist or worsen. Patient requested muscle relaxer medication due to her trapezius spasm. Re-evaluation Time: 18:57 Reassessment Condition: Re-examined, Improved - Lab Interpretations Lab Results: 07/21/17 17:07 07/21/17 17:07 Lab Results 07/21/17 18:24: Urine Opiates Screen Negative, Urine Methadone Screen Negative, Ur Barbiturates Screen Negative, Ur Phencyclidine Scrn Negative, Ur Amphetamines Screen Negative, U Benzodiazepines Scrn Negative, U Oth Cocaine Metabols Negative, U Cannabinoids Screen Negative 07/21/17 18:24: Urine Color Yellow, Urine Appearance Cloudy, Urine pH 7.0, Ur Specific [place] 1.010, Urine Protein Negative, Urine Glucose (UA) Negative, Urine Ketones Trace H, Urine Blood Negative, Urine Nitrate Negative, Urine Bilirubin Negative, Urine Urobilinogen 0.2, Ur Leukocyte Esterase Negative 07/21/17 17:07: Sodium 143, Potassium 4.5, Chloride 108 H, Carbon Dioxide 23, Anion Gap 18, BUN 9, Creatinine 0.4 L, Est GFR ( Amer) > 60, Est GFR (Non -Af Amer) > 60, Random Glucose 84, Calcium 9.0, Magnesium 1.9, Total Bilirubin 0.5, AST 21, ALT 20, Alkaline Phosphatase 77, Lactate Dehydrogenase 578, Total Creatine Kinase 42, Troponin I < 0.01, Total Protein 7.3, Albumin 4.1, Globulin 3.3, Albumin/Globulin Ratio 1.2 07/21/17 17:07: WBC 5.7, RBC 4.79, Hgb 13.0, Hct 36.2, MCV 75.6 L, MCH 27.1, MCHC 35.9, RDW 14.3, Plt Count 75 L, Gran % 49.8 L, Lymph % (Auto) 40.9 H, [place] % (Auto) 7.8 H, Eos % (Auto) 1.2 L, Baso % (Auto) 0.3, Gran # 2.85, Lymph # ( Auto) 2.4, [place] # (Auto) 0.5, Eos # (Auto) 0.1, Baso # (Auto) 0.02 - RAD Interpretation Narrative RAD Interpretations (Text): 07/21/17 18:49 CXR: NAD Radiology Orders: 07/21/17 16:41 CHEST PORTABLE [RAD] Stat - EKG Interpretation Interpreted by ED Physician: Yes (NSR @ [address] changes) Type: 12 lead EKG Comparison: Similar to previous EKG Disposition/Present on Arrival - Present on Arrival Any Indicators Present on Arrival: No History of DVT/PE: No History of Uncontrolled Diabetes: No Urinary Catheter: No History of Decub. Ulcer: No History Surgical Site Infection Following: None - Disposition Have Diagnosis and Disposition been Completed?: Yes Diagnosis: Non-cardiac chest pain, Musculoskeletal pain Disposition: HOME/ ROUTINE Disposition Time: 18:58 Patient Plan: Discharge Patient Problems: Current Active Problems Problem Status Onset Musculoskeletal pain Acute Non-cardiac chest pain Acute Condition: IMPROVED Discharge Instructions (ExitCare): Panic Disorder (DC) Additional Instructions: Call private doctor for follow up visit in 1-2 days. take medication as instructed. Return to emergency if symptoms worsen. Prescriptions: Cyclobenzaprine [Cyclobenzaprine HCl] 10 mg PO DAILY PRN #20 tab PRN Reason: Muscle Spasm Referrals: [facility] [Outside] - Follow up with primary [facility] [Outside] - Follow up with primary Forms: [facility] (Arabic), WORK NOTE
[2017-07-21 17:34] LABS: BASO # 0.02 K/mm3 (0.0-2.0); BASO % 0.3 % (0.0-3.0); EOS # 0.1 (0.0-0.7); EOS % 1.2 % (1.5-5.0); GRAN # 2.85 (1.4-6.5); GRAN % 49.8 % (50.0-68.0); LYMPH # 2.4 (1.2-3.4); LYMPH % 40.9 % (22.0-35.0); MEAN CELL VOLUME 75.6 fl (80.0-105.0); MEAN CORPUSCULAR HEMOGLOBIN 27.1 pg (25.0-35.0); MEAN CORPUSCULAR HGB CONC 35.9 g/dl (31.0-37.0); MONO # 0.5 (0.1-0.6); MONO % 7.8 % (1.0-6.0); RBC 4.79 10^6/uL (3.5-6.1); RED CELL DISTRIBUTION WIDTH 14.3 % (11.5-14.5); WHITE BLOOD COUNT 5.7 10^3/ul (4.5-11.0)
[2017-07-21 17:43] LABS: ALB/GLOB RATIO 1.2 (1.1-1.8); ALBUMIN 4.1 g/dL (3.0-4.8); ALT/SGPT 20 U/L (7-56); AST/SGOT 21 U/L (14-36); BLOOD UREA NITROGEN 9 mg/dL (7-21); GFR AFRICAN-AMERICAN > 60; GFR NON-AFRICAN AMERICAN > 60
[2017-07-21 17:54] LABS: TROPONIN I < 0.01 ng/mL
[2017-07-21 18:22] LABS: PLATELET COUNT 75 10^3/uL (120.0-450.0)
[2017-07-21 18:26] VITALS: RESP 17
[2017-07-21 18:43] LABS: URINE BILIRUBIN NEGATIVE (NEGATIVE); URINE BLOOD NEGATIVE (NEGATIVE); URINE GLUCOSE (UA) NEGATIVE (NEGATIVE); URINE LEUKOCYTE ESTERASE NEGATIVE Leu/uL (NEGATIVE); URINE PROTEIN NEGATIVE mg/dL (<30 mg/dL); URINE UROBILINOGEN 0.2 E.U./dL (<1 E.U./dL)
[2017-07-21 18:46] LABS: URINE APPEARANCE CLOUDY (CLEAR); URINE COLOR YELLOW (YELLOW)
--- NOTE | 2017-07-21 18:51 | RAD ---
HISTORY: Chest pain COMPARISON: 05/25/2016 FINDINGS: LUNGS: No active pulmonary disease. PLEURA: No significant pleural effusion identified, no pneumothorax apparent. CARDIOVASCULAR: No radiographic findings to suggest acute or significant cardiovascular disease. OSSEOUS STRUCTURES: No significant abnormalities. VISUALIZED UPPER ABDOMEN: Normal. OTHER FINDINGS: None. IMPRESSION: No active disease. No significant interval change compared to the prior examination(s).
[2017-07-21 18:54] LABS: BARBITURATES, UR NEGATIVE (NEGATIVE); BENZODIAZEPINES, UR NEGATIVE (NEGATIVE); OPIATES, UR NEGATIVE (NEGATIVE); PHENCYCLIDINE, UR NEGATIVE (NEGATIVE)
[2017-07-21 19:27] VITALS: BP 132/85; PULSE 75; O2SAT 99
--- NOTE | 2017-07-21 22:28 | CARD ---
APPROVED REPORT EKG Measurement Heart [id number] [place] 144P40 [id number] <Conclusion> Normal sinus rhythm Normal ECG
== END 2017-07-21 19:26 | disposition home or self-care (01) ==
LOC: ED 15:49
DX: R07.89 Other chest pain (principal); I10 Essential (primary) hypertension